=== PATIENT | female | born 1985 ===

== ENCOUNTER 2025-01-23 11:20 | Outpatient (AMB) | payer BC, SELFPAY ==
--- OUTSIDE RECORDS SUMMARY | 2024-04-24 05:15 | XMS_ITS ---
Author Organization [facility] [address] Address [address] [place] [address] Care Team Providers Care Sales Force Administrator Name Role Phone JEAN CLAUDE REN Primary Care Provider [phone] Encounters Encounter Location Date Provider Diagnosis [facility] [address] [facility] [address] [address] 04/24/2024 JEAN CLAUDE REN Plan Of Treatment Next Appt Details Provider Name:MICHELLE DE LEON, 02/23/2025 12:30:00 PM, [address] , [place], [address], Progress Notes * Vega TAIeeDOB:[birth year] (39 yo F)Acc No.[id number]:04/24/2024 Progress Notes Patient: Sophie Hall Provider: Brendan REN PA-C :1985 A ge:38 Y S ex:Female Date:04/24/2024 Address:[address] [facility] [place], [place] * Electronic signature of OTTO REN PA-C on 01/23/2025 at 10:21 PM EST Sign off status: Pending * Provider: Brendan REN PA-C Date: 0 04/24/2024 Generated for [place]/Eveline/eTransmitting on: 1 03/25/2024 10:21 PM EST
--- OUTSIDE RECORDS SUMMARY | 2025-01-01 03:15 | XMS_ITS ---
Author Organization [facility] [address] Address [address] [place] [address] Care Team Providers Care Emergency Room Clerk Name Role Phone JEAN CLAUDE REN Primary Care Provider MICHELLE DE LEON Unavailable [phone] Encounters Encounter Location Date Provider Diagnosis [facility] [address] [address] 01/01/2025 MICHELLE DE LEON Plan Of Treatment Next Appt Details Provider Name:MICHELLE DE LEON, 02/23/2025 12:30:00 PM, [address], [place], [address], Progress Notes * CAMILA, ReneeDOB:[birth year] (39 yo F)Acc No.[id number]:01/01/2025 Patient: Sophie Hall Provider: Ruthie DE LEON NP :1985 A ge:39 Y S ex:Female Date:01/01/2025 Address:[address] [facility] [place] Pcp:JEAN CLAUDE REN * Electronic signature of JOHN DE LEON on 01/23/2025 at 10:19 PM EST Sign off status: Pending * Provider: Ruthie DE LEON NP Date: Generated for Sengi ng/Facloverg/eTransmitting on: 03/25/2024 10:19 PM EST
--- NOTE | 2025-01-23 11:30 | MHC.OFFWIV ---
Intake Vital Signs 01/23/25 11:31 Height 5 ft 3.5 in BP 138/80 Blood Pressure Location Lt brachial Position Sitting Pulse 116 H Pulse Source Pulse Oximeter Pulse Oximetry (%) 100 Oxygen Delivery Method Room Air Intake Visit Reasons: EP Dog bite on right hand Intake Note: Patient presents c/o dog bite on right hand from her own dog yesterday. Dog is UTD with shots. Allergies azithromycin Allergy (Unknown, Verified 01/23/25 11:34) Gastrointestinal Upset HPI HPI Comments History of Present Illness Details History of Present Illness - The patient is a 39-year-old female presenting with a dog bite. - The incident occurred when the patient's dog got off the leash and bit her during an altercation with another dog. - The bite resulted in immediate bruising and swelling, with the patient experiencing numbness and swelling in the arm and hand, particularly affecting the thumb and pinky and radiating up the forearm. - The patient cleaned the wound with warm water, hydrogen peroxide, and Hibiclens, and used a wound wash the following morning. - She has been applying Bacitracin and a bandaid to the area. - The patient has a history of hiatal hernia, which causes increased nausea, and is sensitive to antibiotics. - The patient has Polycystic Ovary Syndrome (PCOS) and thyroid issues, which complicate her weight management efforts. - She denies fever, chills, chest pain, SOB, discharge, bleeding, redness, warmth, or joint pain. Physical Exam General: Cooperative, healthy appearing, comfortable, no acute distress and well developed Orientation: Patient oriented x3 Respiratory: Normal respiratory effort and able to speak in complete sentences. Clear to auscultation bilaterally Cardiovascular: Regular rate and rhythm. Normal S1 and S2 Skin: Bruising and swelling noted on the left hand, with a puncture wound from a dog bite. No discharge or streaking noted. Neuro: Patient oriented x3. Sensation is intact. Extremities: Bruising and swelling noted on the right hand, on the palmar aspect in the thenar muscle with a puncture wound from a dog bite. No erythema noted. Ecchymosis and skin abrasion noted. Mild swelling to the area. FROM of the thumb and digits on the right hand. FROM of the wrist. Negative Finklestein test. Hand air traffic controller center is intact. Patient was informed and verbally consented to the use of an ambient scribe for clinic note documentation during this visit. Review of Systems Const All systems reviewed & are unremarkable except as noted in HPI and below Physical Exam Vital Signs: Last Vital Signs Pulse 116 H 01/23/25 11:31 BP 138/80 01/23/25 11:31 Pulse Ox 100 01/23/25 11:31 Oxygen Delivery Method Room Air 01/23/25 11:31 Assessment & Plan Assessment & Plan (1) Dog bite of right hand: Code(s): S61.451A - Open bite of right hand, initial encounter; W54.0XXA - Bitten by dog, initial encounter Qualifiers: Encounter type: initial encounter Qualified Code(s): S61.451A - Open bite of right hand, initial encounter; W54.0XXA - Bitten by dog, initial encounter Plan Most likely Dog Bite plan - Prescribed doxycycline 100 mg twice daily for five days to cover for Pasteurella infection as prophylaxis. - Pt can't tolerate certain antibiotics and preferred to avoid the first line, Augmentin due to side effects. Also did not want a second agent per UTD to cover for the anaerobes. - Advised to keep the wound clean with saline and avoid sealing it with ointments to allow drainage. - Recommended monitoring for signs of infection such as increased redness, streaking, or pus. - Suggested use of Tylenol or Motrin for pain management and advised to apply ice or heat as needed. - Instructed to monitor for changes in symptoms and seek further evaluation if symptoms persist or worsen. Medications: New doxycycline hyclate 100 mg PO BID 10 tabs 0RF 5 days Coding Level of Care Code Est Pt Level 3 (80199) Diagnoses Dog bite of right hand, initial encounter S61.451A; W54.0XXA Encounter type: initial encounter
[2025-01-23 11:31] VITALS: BP 138/80; PULSE 116; O2SAT 100
--- OUTSIDE RECORDS SUMMARY | 2025-01-23 22:20 | XMS_ITS | Encounter Summary ---
Author Organization [facility] Address [address] [place] [address] Phone Care Team Providers Care Insurance Underwriter Name Role Phone OliverIlda Avila MOTA Unavailable Henna Becerril MD Unavailable Whitney Bear MD Unavailable Whitney Bear MD Primary Care Provider [phone] Tanja Davis DO Primary Care Provider [phone] Whitney Bear MD Unavailable [phone] Whitney Bear MD Unavailable [phone] Unknown, Unknown Primary Care Provider Tanja Moore DO Unavailable Encounter Details Date Type Department Care Team (Late st Contact Info) Description 08/10/2021 Ancillary Orders [facility] [address] [place] [address] Alex Jha MD [address] [place] [address] Infertility associated with anovulation Social History Tobacco Use Types Packs/Day Years Used Date Smoking Tobacco: Never Smokeless Tobacco: Never Alcohol Use Standard Drinks/Week Comments Yes 2 (1 standard drink = 0.6 oz pur e alcohol) Comments No Sex and Gender Information Value Date Recorded Sex Assigned at Not on file Legal Sex Female 9:14 PM EDT Gender Identity Not on file Sexual Orientation Not on file 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 Not on file Not on file documented as of this encounter Plan of Treatment Upcoming Encounters Date Type Department Care Team (Late st Contact Info) Description 05/06/2025 3:00 PM EST Office Visit [facility] Endocrinology [address] [address] Юлия Hardin MD [address] [place] [phone] [email or web address] documented as of this encounter Results * US PELVIS TRANSVAGINAL ONLY (08/10/2021 12:55 PM EDT) Anatomical Region Laterality Modality Pelvis, Uterus/Adnexa Ultrasound Narrative 08/10/2021 3:29 PM EDT EXAM INFORMATION LMP: 07/13/2021 UTERUS Measurements: Length x Width x Height = Volume 6.55 cm x 4.22 cm x 3.12 cm = 45.1 cc Endometrium Thickness: 2.6 mm Fibroids Location: Fibroids Appearance: LEFT OVARY Measurements: Length x Width x Height = Volume 4.26 cm x 4.08 cm x 1.58 cm = 14.36 cc RIGHT OVARY Measurements: Length x Width x Height = Volume 4.78 cm x 2.79 cm x 2.69 cm = 18.76 cc COMMENTS Introductory Information: Endovaginal sonography was performed. There are no prior studies for comparison. Uterus The uterus is retroverted. There is a moderate amount of anechoic fluid in the endometrial cavity. The myometrial echotexture is diffusely heterogeneous, a finding which can be seen with adenomyosis. The following findings are present: Asymmetric thickening and heterogeneity of the posterior myometrium. ?Right Adnexa There is a complex cyst in the right ovary measuring 1.5 x 1.5 x 1.2 cm. The complex cyst is most likely a/an corpus luteal cyst or hemorrhagic ovarian cyst. No internal color Doppler blood flow identified within the cyst. There is a tubular fluid filled structure in the right adnexa, measuring 3.3 x 1.6 x 1 cm. Left adnexa The left ovary appears normal. [place] No fluid is visible. IMPRESSION: Fluid in the endometrial cavity, of uncertain etiology. The fluid does not outline a polyp and shows that the anterior and posterior em of the endometrial lining are both thin. The myometrial echotexture is diffusely heterogeneous, a finding which can be seen with adenomyosis. Probable right hydrosalpinx and probable small left corpus luteum, with no other suspicious adnexal abnormality. Shutdown Planner: Adriana Rae RDMS Procedure Note Gavin Pollard MD - 08/10/2021 EXAM INFORMATION LMP: 07/13/2021 UTERUS Measurements: Length x Width x Height = Volume 6.55 cm x 4.22 cm x 3.12 cm = 45.1 cc Endometrium Thickness: 2.6 mm Fibroids Location: Fibroids Appearance: LEFT OVARY Measurements: Length x Width x Height = Volume 4.26 cm x 4.08 cm x 1.58 cm = 14.36 cc RIGHT OVARY Measurements: Length x Width x Height = Volume 4.78 cm x 2.79 cm x 2.69 cm = 18.76 cc COMMENTS Introductory Information: Endovaginal sonography was performed. There are no prior studies for comparison. Uterus The uterus is retroverted. There is a moderate amount of anechoic fluid in the endometrial cavity. The myometrial echotexture is diffusely heterogeneous, a finding which canbe seen with adenomyosis. The following findings are present: Asymmetric thickening and heterogeneity of the posterior myometrium. ?Right Adnexa There is a complex cyst in the right ovary measuring 1.5 x 1.5 x 1.2 cm. The complex cyst is most likely a/an corpus luteal cyst or hemorrhagicovarian cyst. No internal color Doppler blood flow identified within the cyst. There is a tubular fluid filled structure in the right adnexa, measuring3.3 x 1.6 x 1 cm. Left adnexa The left ovary appears normal. [place] No fluid is visible. IMPRESSION: Fluid in the endometrial cavity, of uncertain etiology. The fluid does not outline a polyp and shows that the anterior and posterior em of the endometrial lining are both thin. The myometrial echotexture is diffusely heterogeneous, a finding which canbe seen with adenomyosis. Probable right hydrosalpinx and probable small left corpus luteum, with no other suspicious adnexal abnormality. 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 documented in this encounter Care Teams Insurance Underwriter Relationship Specialty Start Date End Date Whitney Bear MD [address] [facility] [address] [place] [address] PCP - General 01/10/17 12/01/21 Tanja Davis DO [address] [place] [address] PCP - General Family Medicine 12/02/21 01/08/24 Unknown, Stephany, PCP - General 01/09/24 Ilda Boyd NP [address] [place] [address] [email or web address] Historical LMR Provider 12/25/16 Henna Becerril MD [address] [place] [address], [address] [place] [address] [email or web address] Historical LMR Provider 12/25/16 Whitney Bear MD [address] [place] [address] [email or web address] Historical LMR Provider 12/25/16 Whitney Bear MD [address] [place] [address] 7 [place] [address] [email or web address] Insurance Assigned Provider 03/13/2207/10/22 Whitney Bear MD [address] [place] [address] [address] [place] [address] [email or web address] Insurance Assigned Provider 06/11/2301/28 Tanja Davis DO [address] [place] [address], [address] [place] [address] Insurance Assigned Provider 04/14/24 documented as of this encounter Additional Source Comments The information contained in this document represents components of the legal health record. It is not the complete legal health record.[facility]
--- OUTSIDE RECORDS SUMMARY | 2025-01-23 22:20 | XMS_ITS | Encounter Summary ---
Author Organization [facility] Address [address] [place] [address] Phone Care Team Providers Care Youth Associate Name Role Phone Suzanne Vyas RETAIL PERSONAL BANKER Unavailable [phone] Conchita Tracey MD Unavailable [phone] Ilda Boyd RETAIL PERSONAL BANKER Unavailable Hillary Mcfarlane RETAIL PERSONAL BANKER Unavailable [phone] Hillary Martines LEAD VULCANIZING OPERATOR Unavailable [phone] Henna Becerril MD Unavailable Whitney Bear MD Unavailable [phone] Janett Gonzales DO Unavailable Master Acosta MD Unavailable [phone] Juan De La Vega MD Unavailable Frances [address] RD Unavailable [email or web address] Christine Castillo MD Unavailable Brandan White MD Unavailable [phone] Paulina Chatman MD Unavailable Whitney Bear MD Primary Care Provider [phone] Tanja Davis DO Primary Care Provider [phone] Whitney Bear MD Unavailable Whitney Bear MD Unavailable [phone] Unknown, Unknown Primary Care Provider Tanja Moore DO Unavailable Reason for Visit * Reason Comments Medication Refill Encounter Details Date Type Department Care Team (Late st Contact Info) Description 09/13/2020 Refill [facility] [address] [place] [address] Whitney Bear MD [address] 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 * Francesco Rodriguez MA - 09/15/2020 11:01 AM EDT THYROID MEDICATION REFILL Last office visit: Visit date not found Next office visit: Visit date not found Last TSH: TSH Date Value Ref Range Status 01/12/2017 2.67 0.27 - 4.20 uIU/mL Final Last refill: documented in this encounter Plan of Treatment Upcoming Encounters Date Type Department Care Team (Late st Contact Info) Description 05/06/2025 3:00 PM EST Office Visit [facility] Endocrinology [address] [address] Юлия Hardin MD [address] [facility] [address] [place] [address] [email or web address] documented as of this encounter Visit Diagnoses Diagnosis Hypothyroidism, unspecified type documented in this encounter Care Teams Youth Associate Relationship Specialty Start Date End Date Whitney Bear MD [address] [place] [address] 7 [place] [address] PCP - General 01/10/17 12/01/21 Tanja Davis DO [address] [place] [phone] PCP - General Family Medicine 12/02/21 01/08/24 Unknown, Stephany, PCP - General 01/09/24 Suzanne Vyas NP [address] [place] [address] [email or web address] Historical LMR Provider 12/25/16 03/14/21 Conchita Tracey MD [address] [place] [email or web address] Historical LMR Provider 12/25/16 03/14/21 Ilda Boyd NP [address] [place] [address] [email or web address] Historical LMR Provider 12/25/16 Hillary Mcfarlane NP [address] [place] [address] Historical LMR Provider 12/25/16 2 Hillary Martines FNP [address] [place] [address] Historical LMR Provider 12/25/16 03/14/21 Henna Becerril MD [address] [place] [address], [address] [place] [address] Historical LMR Provider 12/25/16 Whitney Bear MD [address] [place] [address] Historical LMR Provider 12/25/16 Janett Gonzales DO [address] [place] [address] Historical LMR Provider 12/25/16 2 Master Acosta MD [address] [address] Historical LMR Provider 12/25/16 03/14/21 Juan De La Vega MD [address] [place] [phone] Historical LMR Provider 12/25/16 2 [address], RD Historical LMR Provider 12/25/16 03/14/21 Christine Castillo MD [address] [place] [address] Historical LMR Provider 12/25/16 2 Brandan White MD [address] [place] [address] Historical LMR Provider 12/25/16 2 Paulina Chatman MD [address] [address] [email or web address] Historical LMR Provider 12/25/16 03/14/21 Whitney Bear MD [address] [place] [address] 7 [place] [address] Insurance Assigned Provider 03/13/22 07/10/22 Whitney Bear MD [address] [place] [address] 7 [place] [address] Insurance Assigned Provider 06/11/23 07/16/23 Tanja Davis DO [address] [place] [address] 7 [place] [address] Insurance Assigned Provider 04/14/24 05/12/24 documented as of this encounter Additional Source Comments The information contained in this document represents components of the legal health record. It is not the complete legal health record.[facility]
--- OUTSIDE RECORDS SUMMARY | 2025-01-23 22:21 | XMS_ITS | Encounter Summary ---
Author Organization [facility] Address [address] [place] [address] Phone Care Team Providers Care Insole Taper Name Role Phone OliverIlda Javi MOTA Unavailable Henna Becerril MD Unavailable Whitney Bear MD Unavailable [phone] Tanja Davis DO Primary Care Provider Whitney Bear MD Unavailable Whitney Bear MD Unavailable Unknown, Unknown Primary Care Provider Tanja Moore DO Unavailable Encounter Details Date Type Department Care Team (Latest Contact Info) Description 02/05/2022 Transcribe Orders Virtual Department [address] [place] [address] Tanja Davis, DO [address] [facility], [address] [place] [address] [email or web address] Breast screening (Primary Dx) Social History Tobacco Use Types Packs/Day Years Used Date Smoking Tobacco: Never Smokeless Tobacco: Never Alcohol Use Standard Drinks/Week Comments Yes 2 (1 standard drink = 0.6 oz pur e alcohol) Child or Family Care Answer Date Record ed Do you have problems with on e of the following making it difficult for you to work, study, or receive health care? No 12/01/2021 Education Answer Date Recorded Are you interested in help w ith more adult education (for example, completing high school, GED, job training, learning the [place]ij[place] language, technical skills, or developing parenting skills)? No 12/01/2021 Food Answer Date Recorded Within the past 6 months we worried whether our food would run out before we got money to buy more. Never True 12/01/2021 Within the past 6 months the food we bought just didn't last and we didn't have enough money to get more. Never True Residential Stability Answer Date Recor ded What is your housing situation today? I have pernell sing 12/01/2021 How many times have you move d in the past 12 months? Zero (I did not move) 12/01/2021 Paying for Meds Answer Date Recorded Do you have trouble paying for medicines? I maria se not to answer 12/01/2021 Paying Utility Bills Answer Date Record ed Do you have trouble paying your heating or elect ricity bill? No 12/01/2021 Transportation Answer Date Recorded Has the lack of transportati on kept you from medical appointments or from getting medications? No 12/01/2021 Unemployment Answer Date Recorded Are you currently unemployed or working on a part-time or temporary basis, and looking for work? 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 Not on file Not on file documented as of this encounter Plan of Treatment Upcoming Encounters Date Type Department Care Team (Late st Contact Info) Description 05/06/2025 3:00 PM EST Office Visit [facility] Endocrinology [address] [place] [address] Юлия Hardin MD [address] [place] [address] [email or web address] documented as of this encounter Results * (ABNORMAL) BI MAMMOGRAM SCREENING WITH TOMOSYNTHESIS WITH CAD (BILATERAL) (07/27/2022 2:18 PM EDT) Anatomical Region Laterality Modality Breast Left, Breast Right, Breast Bilateral Bila teral Mammography 07/29/2022 9:44 AM EDT Impressions 07/29/2022 9:49 AM EDT 1. New masslike asymmetry in the central left breast. The patient is being recalled for additional imaging to determine appropriate follow-up. 2. No other suspicious changes in either breast. BI-RADS CATEGORY: 0 - Incomplete. Need additional imaging evaluation. DENSITY: There are scattered fibroglandular densities. LEFT RECOMMENDATION DUE DATE: At This Time Left Additional Imaging RIGHT RECOMMENDATION DUE DATE: 12 Months Right Mammography Screening Narrative 07/29/2022 9:49 AM EDT AVAILABLE COMPARISON: 06/21/2017. Bilateral 3-D tomosynthesis with 2-D reconstructions in the CC and MLO projection. Computer-aided detection system also utilized. There is a new oval asymmetric density measuring about 9 x 9 x 12 mm in the medial aspect of the central left breast at about 3:00, roughly 3 cm deep to the nipple. The patient is being recalled for additional imaging to determine appropriate follow-up No other new mass, asymmetry, architectural distortion or suspicious calcifications have become apparent in either breast. Procedure Note Jovanny Stein MD - 07/29/2022 AVAILABLE COMPARISON: 06/21/2017. Bilateral 3-D tomosynthesis with 2-D reconstructions in the CC and MLOprojection. Computer-aided detection system also utilized. There is a new oval asymmetric density measuring about 9 x 9 x 12 mm inthe medial aspect of the central left breast at about 3:00, roughly 3 cmdeep to the nipple. The patient is being recalled for additional imaging to determineappropriate follow-up No other new mass, asymmetry, architectural distortion or suspiciouscalcifications have become apparent in either breast. IMPRESSION: 1. New masslike asymmetry in the central left breast. The patient is beingrecalled for additional imaging to determine appropriate follow-up. 2. No other suspicious changes in either breast. BI-RADS CATEGORY: 0 - Incomplete. Need additional imaging evaluation. DENSITY: There are scattered fibroglandular densities. LEFT RECOMMENDATION DUE DATE: At This Time Left Additional Imaging RIGHT RECOMMENDATION DUE DATE: 12 Months Right Mammography Screening Tanja Davis DO IMG MG EXAMS Final Result documented in this encounter Visit Diagnoses Diagnosis Breast screening- Primary Breast screening, unspecified Breast screening Breast screening, unspecified documented in this encounter Additional Health Concerns Assessment Noted Time PHQ-2 Depression Total Score: 1 12/02/19 22 6:00 PM EDT documented as of this encounter Care Teams Insole Taper Relationship Specialty Start Date End Date Tanja Davis DO [address] [place] [address], [facility] [address] [place] [address] PCP - General Family Medicine 12/02/21 01/08/24 Unknown, Unknown, PCP - General 01/09/24 Ilda Boyd NP [address] [place] [address] [email or web address] Historical LMR Provider 12/25/16 Henna Becerril MD [address] [facility], [address] [place] [address] Historical LMR Provider 12/25/16 Whitney Bear MD [address] [place] [address] 7 [place] [address] Historical LMR Provider 12/25/16 Whitney Bear MD [address] [place] [address] 7 [place] [address] Insurance Assigned Provider 03/13/2207/10/22 Whitney Bear MD [address] [place] [address], [address] [place] [id number] [email or web address] Insurance Assigned Provider 06/11/2301/28 Tanja Davis DO [address] [place] [address], [facility] [address] [place] [id number] [email or web address] Insurance Assigned Provider 04/14/24 documented as of this encounter Additional Source Comments The information contained in this document represents components of the legal health record. It is not the complete legal health record.[facility]
--- OUTSIDE RECORDS SUMMARY | 2025-01-23 22:22 | XMS_ITS | Clinical Summary ---
Author Organization [facility] Address [address] [place] [address] Phone Care Team Providers Care Entry Level Mechanical Engineer Name Role Phone OliverIlda Javi FISHING REEL ASSEMBLER Unavailable Henna Becerril MD Unavailable Whitney Bear MD Unavailable [phone] Unknown, Unknown Primary Care Provider Shantell franco Allergies Active Allergy Reactions Criticality Noted Date Comments Azithromycin GI Upset 10/02/2018 Bee Venom Protein (Honey Bee) Anaphylaxis High 01/12/2017 Other reaction(s): anaphylaxisis Morphine (Pf) Itching 08/10/2021 Iodine 11/26/2021 Other reaction(s): seafood allergies Peanut GI Upset 11/26/2021 Scallops Shortness Of Breath High 01/12/2017 Shellfish Containing Products Shortness Of Breath High 01/12/2017 Tree Nuts GI Upset 01/12/2017 Medications promethazine (PHENERGAN) 12.5 MG tabletIndicatio ns:Gastroesopha geal reflux disease without esophagitis Take 1 tablet (12.5 mg total) by mouth every 6 (six) hours as needed for nausea. 7 tablet 01/12/20 22 Active ondansetron (ZOFRAN) 4 MG tabletIndicatio ns:Nausea Take 1 tablet (4 mg total) by mouth every 8 (eight) hours as needed for nausea. 48 tablet 10/26/19 23 Active EPINEPHrine (EPIPEN) 0.3 mg/0.3 mL auto-injectorIn dications:Aller gy to insects as directed- bee stiing 1 each 2 07/20/19 24 Active adapalene (DIFFERIN) 0.3 % gel Apply topically nightly at bedtime. 45 g 3 07/20/19 24 Active norethindrone-e thinyl estradiol-iron (MICROGESTIN FE 1.08/03, 28,) 1.5-0.03 mg tablet TAKE 1 TABLET BY MOUTH EVERY DAY SKIP PLACEBOS AND START THE NEXT PACK 84 tablet 08/22/19 24 Active blood-glucose sensor (FREESTYLE LAUREN 3 SENSOR) Jackeline Use as directed to monitor glucose, change q14 days 2 each 5 09/20/19 24 Active hydrOXYzine (ATARAX) 10 mg/5 mL syrup Take 1-5 mg po 1-2x per day prn anxiety 118 mL 1 01/04/20 24 Active LORazepam (ATIVAN) 0.5 MG tabletIndicatio ns:Generalized anxiety disorder Take 1 po qd prn 28 tablet 01/04/20 24 Active levothyroxine (SYNTHROID,LEVO THROID) 25 MCG tabletIndicatio ns:Hypothyroidi sm, unspecified type TAKE 1 TABLET BY MOUTH EVERY DAY IN THE MORNING 90 tablet 1 01/16/20 25 Active levothyroxine (SYNTHROID,LEVO THROID) 25 MCG tabletIndicatio ns:Hypothyroidi sm, unspecified type take 1 tablet by mouth every day in the morning 90 tablet 2 02/21/20 24 025 Discontinued Active Problems Problem Noted Date Diagnosed Date Atypical lobular hyperplasia (ALH) of left breas t 01/04/2024 Overview (01/04/2024): 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 Assessment & Plan (01/04/2024 4:37 PM EDT): Reviewed to go to ed if the pain is extreme and or is accompanied by fever. Adenomyosis 12/02/2021 Overview (01/04/2024): [facility] [employer] R[employer] SERVICES MANAGER Gastroesophageal reflux disease without esophagi tis 12/02/2021 Overview (01/04/2024): Lifestyle controlled. Assessment & Plan (01/04/2024 4:39 PM EDT): No acute issue. Assessment & Plan (01/11/2022 4:13 PM EST): She uses tums as needed Avoiding PPI as she is trying to conceive Refilled phenergan to use as needed. We discussed famotidine. Generalized anxiety disorder 12/02/2021 Overview (01/04/2024): Lorazepam- prn - rare use Possibly related to PTSD surrounding traumatic fertility issues Diazepam has also worked well for her Hiatal hernia 10/25/2017 Overview (01/04/2024): Upper endoscopy by Dr Méndez in 2018. Lifestyle controlled She is adverse to PPI/H2 Will take TUMS Assessment & Plan (01/04/2024 4:39 PM EDT): No acute issue Acne 06/12/2017 Assessment & Plan (06/12/2017 8:24 PM EDT): Encouraged continued f/u with derm for acne management. Offered different OCP to address acne, Sophie declined as she is worried about trying a different pill. Polycystic ovarian syndrome 06/12/2017 Overview (01/04/2024): CAR[employer] R[employer] SERVICES MANAGER: babak- [facility] [employer] RAMP SERVICES MANAGER Assessment & Plan (01/04/2024 4:35 PM EDT): No acute issue. Assessment & Plan (08/09/2023 1:07 PM EDT): On OCP w/o current c/o hair loss/excess hair growth or acne (on adapalene). Assessment & Plan (06/12/2017 8:32 PM EDT): Advised that amenorrhea on OCPs is common and not concerning. Sophie declined trial of alternative pill (suggested Kate) to specifically address acne concerns. History of 3 sections 06/12/2017 Assessment & Plan (06/12/2017 8:15 PM EDT): Reviewed with Sophie associated risks in subsequent pregnancies including abnormal placentation (i.e. Acreta/percreat/increta; previa) in addition to uterine rupture. In particular, after 3 c-sections, risk of placentation abnormalities is increased 40%. While operative notes from her prior are not available for review, her description of a uterine window at time of delivery in G4 also puts her at risk for uterine rupture. We discussed the catastrophic nature of these issues with morbidity/mortality concerns for both mother and fetus. We discussed potential for delivery, c-hyst, and hemorrhage. Sophie is considering requesting transfer of one of her 4 remaining embryos despite this information as she feels conflicted about destroying the remaining embryos. We discussed the need for close monitoring should she pursue this option and would recommend delivery at [facility] again to optimize available resources. History of female sterilization 06/12/2017 Assessment & Plan (06/12/2017 8:17 PM EDT): Advised Sophie that the changes she has noticed are not the result of her sterilization procedure. Operative note not available today so unable to review which approach was used however, no evidence to support hormonal changes following permanent sterilization. 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 Continue intervention as per specialty care. Assessment & Plan (08/09/2023 1:06 PM EDT): Reports good consistency taking rx. Will check levels & adjust as appropriate. Resolved Problems Problem Noted Date Diagnosed Date Resolved Date Polycystic ovarian syndrome 08/09/2023 08/09/2023 Weight gain 08/09/2023 01/04/2024 Assessment & Plan (08/09/2023 1:09 PM EDT): Has gained weight w/ difficulty losing. Will check TFTs/optimize rx as appropriate. Will screen for Cushings (low clinical suspicion) with late night salivary cortisol x 2 given on OCP & estrogen can increase cortisol/impact dex suppression testing. If these tests are normal, would continue to work on eating healthy, get back to activity, include some strength training. Could consider seeing dietitian vs a weight management program as needed. Right upper quadrant abdominal pain 05/30/2019 12/02/2021 Assessment & Plan (05/30/2019 12:01 PM EDT): I spent a total of 15 minutes during this real-time, interactive virtual clinical encounter, which was conducted virtually using TELEPHONE ONLY technology. Greater than 50% of the time spent was devoted to counseling and coordinating care including review of records, pertinent lab data and studies, as well as discussing diagnostic evaluation and work up, planned therapeutic interventions and future disposition of care. This includes any additional research needed to obtain further information in formulating the plan of care of this patient. This includes counseling the patient about her disease and diagnosis, specifically: Sophie has been experiencing right upper quadrant abdominal pain since 9 AM this morning and getting worse. She has not vomited however the pain is intense. She notes that she is aware of gallbladder stones and declined the surgery in the past and is still on the fence if she wants to get this removed if this is the problem. I advised her to go the emergency room for blood work as well as an ultrasound for verification of the stones as well as fluid hydration and pain medication as needed. She will make her mind up as to what she wants to do. If this gets worse she will call and I will still advise her to go to emergency room. She understands and agrees. Sciatica of right side 01/03/201801/03 Assessment & Plan (02/20/2018 1:12 PM EST): She will follow up with MRI and physical therapy as scheduled. We will notify with results. Calculus of gallbladder with acute on chronic cholecystitis without obstruction 06/12/20172023 Loss of hair 06/12/2017 12/02/2021 Assessment & Plan (06/12/2017 8:21 PM EDT): Reviewed broad differential for hair loss, discussed physiologic hair loss following and reviewed that this can take time to regrow. On my exam, Sophie does not have bald patches or distinct baldness. The hairline on the left aspect of her forehead appears slightly diminished. Advised that checking broad hormone panel will not likely yield any useful clinical information particularly with normal eval by Dr. White. She is planning on seeing a chair car attendant at [facility] in July and will keep this appointment. Discharge from right nipple 06/10/2017 12/02/2021 Assessment & Plan (06/12/2017 8:18 PM EDT): Based on history, nipple discharge seems consistent with blocked milk duct however, she is not currently . Offered ultrasound evaluation and advised Sophie to avoid squeezing or stimulating her nipples. Migraine 02/06/2021 Encounters Date Type Department Care Team Description 01/11/2025 Refill [facility] Endocrinology [address] [place] [phone] Юлия Hardin MD Medication Refill from Last 3 Months Immunizations Immunization Administration Dates Next Due COVID-19 (Pre-12/27) Sarah Vaccine, [id number], PF 06/11/2020 DTP 01/20/1990, 7,05/30/1985,1985,01/05/1985 Hepatitis B 03/06/2008,05/17/1997 Hib, unspecified formulation 01/02/1987 MMR 05/17/1997,04/11/1986 PPD Test 11/09/2017 Polio - OPV 01/20/1990, 7,05/30/1985,1985,01/05/1985 Td (adult),2 Lf Tetanus Toxo id, PF, Adsorbed 12/02/2021 Td, unspecified formulation 11/04/1998 Tdap 10/07/2011 Varicella 10/13/2005,09/08/2005,08/18/1991 Family History Medical History Relation Comments Hypertension Father Breast cancer Maternal Aunt Stroke Maternal Grandfather CV disease Maternal Grandmother Hypertension Maternal Grandmother Stroke Maternal Grandmother Thyroid disease Maternal Grandmother s/p BENSON Gallbladder disease Mother Diverticulitis Paternal Grandfather Stroke Paternal Grandfather Relation Status Comments Brother Alive Father Alive Maternal Aunt Maternal Grandfather Maternal Grandmother Alive Mother Alive Paternal Grandfather Social History Tobacco Use Types Packs/Day Years Used Date Smoking Tobacco: Never Smokeless Tobacco: Never Tobacco Cessation:Counseling Given: Not Answered Alcohol Use Standard Drinks/Week Comments Yes 3 (1 standard drink = 0.6 oz pur e alcohol) Child or Family Care Answer Date Record ed Do you have problems with on e of the following making it difficult for you to work, study, or receive health care? No 12/01/2021 Education Answer Date Recorded Are you interested in more education? Not on humberto e 12/17/2023 Are you concerned about learning? Not on file 12/17/2023 No 12/17/2023 No 12/17/2023 Food Answer Date Recorded Within the past [...] basis, and looking for work? No 12/01/2021 Digital Access Answer Date Recorded No 07/28/2022 No 07/28/2022 Reliable internet access at home? Not on file 07/28/2022 Device with a working camera? 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 Not on file Not on file Not on file Last Filed Vital Signs Vital Sign Reading Time Taken Comments Blood Pressure 104/72 08/08/2023 11:20 AM EDT Pulse 80 08/08/2023 11:20 AM EDT Temperature 36.6 C (97.9 F) 08/08/2023 11:20 AM EDT Respiratory Rate 16 08/08/2023 11:20 AM EDT Oxygen Saturation 99% 08/08/2023 11:20 AM EDT Inhaled Oxygen Concentration - - Weight 72.3 kg (159 lb 6.4 oz) 08/08/2023 11:20 AM EDT Height 160 cm (5' 2.99 ) 08/08/2023 11:20 AM EDT Body Mass Index 28.24 08/08/2023 11:20 AM EDT Plan of Treatment Upcoming Encounters Date Type Department Care Team (Late st Contact Info) Description 05/06/2025 3:00 PM EST Office Visit [facility] Endocrinology [address] [phone] Юлия Hardin MD [address] [place] [phone] Health Maintenance Due Date Last Done Comments DEPRESSION SCREENING 12/01/2022 12/01/2021 INFLUENZA VACCINE (#1) 2024 COVID-19 VACCINE ( season) 2024 06/11/2020 MAMMOGRAM 2024 08/18/2022, 05/2 05/2022, 06/21/2017 TSH LEVEL 11/18/2024 11/19/2023, 06/0 06/2023, 12/28/2022, Additional history exists SCREENING FOR DIABETES 12/02/2024 12/02/2021 PAP SMEAR 02/23/2026 02/23/2023, 01/05, 01/12/2017, Additional history exists Adult Td,Tdap Booster 12/03/2031 12/02/2021 , 10/07/2011, 11/04/1998 HIB VACCINES Completed 01/02/1987 HEPATITIS C SCREENING Completed 12/06/2014 HIV ONE-TIME SCREENING (18-65 YEARS) Completed 12/06/2014 SMOKING STATUS SCREENING (Once After 26 Yrs) Completed 01/04/2024 HEPATITIS A VACCINES Aged Out No long er eligible based on patient's age to complete this topic MENINGOCOCCAL VACCINES (ACWY) Aged Out No longer eligible based on patient's age to complete this topic MENINGOCOCCAL VACCINES (B) Aged Out N o longer eligible based on patient's age to complete this topic PNEUMOCOCCAL VACCINES (0-49 years) Aged Out No longer eligible based on patient's age to complete this topic Medical Devices Not on file Procedures Procedure Name Priority Date/Time Associated Diagnosis Comments TSH WITH REFLEX Routine 11/19/2023 5:05 PM EDT 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 PAP TEST Routine 02/23/2023 11:23 AM EST HM MAMMOGRAPHY Routine 08/18/2022 OUTSIDE HIV Routine 12/06/2014 OUTSIDE HEPATITIS C VIRUS SCREENING Routine 12/06/2014 from Last 3 Months or Most Recently Relevant to Health Maintenance Results * TSH with reflex (11/19/2023 5:05 PM EDT) Blood us Юлия Hardin MD LAB BLOOD BKR ORDERABL ES Final Result [address] [address] * Pap Test (02/23/2023 11:23 AM EST) Historical Provider CYTOLOGY ORDERABLES Final Result * HM MAMMOGRAPHY FOR RESULT ENTRY ONLY (08/18/2022) Tanja Davis DO HEALTH MAINTENANCE Final Resu lt * Outside Hepatitis C Virus Screening (12/06/2014) Hepatitis C Screening - External Neg Historical Provider LAB BLOOD ORDERABLES Elsy l Result * OUTSIDE HIV TEST (12/06/2014) HIV - External Neg Result [facility] Historical Provider LAB BLOOD ORDERABLES Elsy l Result from Last 3 Months or Most Recently Relevant to Health Maintenance Insurance [facility] PPO [facility] PPO [employer] [place] OUT OF STATE PPO [place] [place] OUT OF STATE PPO BL[employer] [place] OUT OF STATE PPO [place] [place] OUT OF STATE [place] [address] [address] [facility] [employer] [place] OUT OF [facility] PPO [employer] D[employer] Care Teams Entry Level Mechanical Engineer Relationship Specialty Start Date End Date Unknown, Unknown, PCP - General 01/09/24 Ilda Boyd NP [address] [place] [id number] [email or web address] Historical LMR Provider 12/25/16 Henna Becerril MD [address] [place] [address] Historical LMR Provider 12/25/16 Whitney Bear MD [address] [place] [address] 7 [place] [address] Historical LMR Provider 12/25/16 Additional Source Comments The information contained in this document represents components of the legal health record. It is not the complete legal health record.[facility]
--- OUTSIDE RECORDS SUMMARY | 2025-01-23 22:22 | XMS_ITS | Patient Health Record ---
Author Organization [facility] [address] Address [address] [place] [address] Care Team Providers Care Senior Electrical Design Engineer Name Role Phone MIKAL JEAN CLAUDE Primary Care Provider MICHELLE DE LEON Unavailable [phone] Allergies Allergen (clinical drug ingredient) Drug/Non Drug Allergy documented on EMR Reaction Allergy Type Onset Date Status morphine Duramorph Unknown Drug Allergy Active azithromycin Azithromycin stomach upset Drug Allergy Active Results Component Value Reference Range Flag Notes Hemoglobin [id number] Reviewed date:11/17/2024 08:50:26 AM Interpretation: Performing Lab:[facility] [place], [address] [place] [address], Phone - [phone], Director - Chapisdrrenee Notes/Report: Hemoglobin A1c 5.2 4.8-5.6 % . Prediabetes: 5.7 - 6.4 Diabetes: >6.4 Glycemic control for adults with diabetes: <7.0 Thyroxine (T4) Free, Direct- [id number] Reviewed date:11/17/2024 08:50:26 AM Interpretation: Performing Lab:[facility] [place], [address] [place] [address], Phone - [phone], Director - Chapisdrrenee Notes/Report: T4,Free(Direct) 1.40 0.82-1.77 ng/dL Urinalysis, Complete-[id number] Reviewed date:11/17/2024 08:50:26 AM Interpretation: Performing Lab:[facility] [place], [address] [place] [address], Phone - [phone], Director - MDJodry Notes/Report: Specific [place] 1.020 1.005-1.030 pH 6.0 5.0-7.5 Urine-Color Yellow Yellow Appearance Clear Clear WBC Esterase Negative Negative Protein Negative Negative/Trace Glucose Negative Negative Ketones Negative Negative Occult Blood Trace Negative A Bilirubin Negative Negative Urobilinogen,Semi-Qn 0.2 0.2-1.0 mg/dL Nitrite, Urine Negative Negative Microscopic Examination See below: M icroscopic was indicated and was performed. WBC None seen 0 - 5 /hpf RBC None seen 0 - 2 /hpf Epithelial Cells (non renal) None seen 0 - 10 /hpf Casts None seen None seen /lpf Mucus Threads Present Not Estab. Bacteria None seen None seen/Few [id number] Reviewed date:11/17/2024 08:50:26 AM Interpretation: Performing Lab:[facility] [place], [address] [place] [address], Phone - [phone], Director [facility] Notes/Report: TSH 1.750 0.450-4.500 uIU/mL Vitamin D, [id number] Reviewed date:11/17/2024 08:50:26 AM Interpretation: Performing Lab:[facility] [place], [address] [place] [address], [place], Phone - [phone], Director - MDDuyendry Notes/Report: Vitamin D, 25-Hydroxy 40.9 30.0-100.0 ng/mL Vitamin D deficiency has been defined by the [place] [employer] and an Endocrine Society practice guideline as a level of serum 25-OH vitamin D less than 20 ng/mL (1,2). The Endocrine Society went on to further define vitamin D insufficiency as a level between 21 and 29 ng/mL (2). 1. IOM ([place] [employer]). 2010. Dietary reference intakes for calcium and D. [place]: The National Academies Press. 2. Cleopatra MF, Amina NC, Jing BENITES, et al. Evaluation, treatment, and prevention of vitamin D deficiency: an Endocrine Society clinical practice guideline. JCEM. 2010; 96(7):1911-30. Sonali Isabel CMP14 Default A hand-written panel/profile was received from your office. In accordance with the [facility] Ambiguous Test Code Policy dated September 2002, we have completed your order by using the closest currently or formerly recognized AMA panel. We have assigned Comprehensive Metabolic Panel (14), Test Code #911207 to this request. If this is not the testing you wished to receive on this specimen, please contact the [facility] Client Inquiry/Technical Services Department to clarify the test order. We appreciate your business. Lipid Panel-[id number] Reviewed date:11/17/2024 08:50:26 AM Interpretation: Performing Lab:[facility] [place], [address] [facility], [place], Phone - [phone], Director - Jared Notes/Report: Cholesterol, Total 201 100-199 mg/dL H Triglycerides 220 0-149 mg/dL H HDL Cholesterol 49 >39 mg/dL VLDL Cholesterol Wiliam 38 5-40 mg/dL LDL Chol Calc ([facility]) 114 0-99 mg/dL H Comp. Metabolic Panel (14)-3 Reviewed date:11/17/2024 08:50:26 AM Interpretation: Performing Lab:[facility] [place], [address] [facility], [place], Phone - [phone], Director - Jared Notes/Report: Glucose 86 70-99 mg/dL BUN 13 6-24 mg/dL Creatinine 0.78 0.57-1.00 mg/dL eGFR 98 >59 mL/min/1.73 BUN/Creatinine Ratio 17 9-23 Sodium 137 134-144 mmol/L Potassium 4.2 3.5-5.2 mmol/L Chloride 103 96-106 mmol/L Carbon Dioxide, Total 20 20-29 mmol/L Calcium 9.6 8.7-10.2 mg/dL Protein, Total 7.4 6.0-8.5 g/dL Albumin 4.4 3.9-4.9 g/dL Globulin, Total 3.0 1.5-4.5 g/dL Bilirubin, Total 0.3 0.0-1.2 mg/dL Alkaline Phosphatase 70 44-121 IU/L Effective November 19, 2024 Alkaline Phosphatase reference interval will be changing to: Age Male Female 0 - 5 days 47 - 127 47 - 127 6 - 10 days 29 - 242 29 - 242 11 - 20 days 109 - 357 109 - 357 21 - 30 days 94 - 494 94 - 494 1 - 2 months 149 - 539 149 - 539 3 - 6 months 131 - 452 131 - 452 7 - 11 months 117 - 401 117 - 401 12 months - 6 years 158 - 369 158 - 369 7 - 12 years 150 - 409 150 - 409 13 years 156 - 435 78 - 227 14 years 114 - 375 64 - 161 15 years 88 - 279 56 - 134 16 years 74 - 207 51 - 121 17 years 63 - 161 47 - 113 18 - 20 years 51 - 125 42 - 106 21 - 50 years 47 - 123 41 - 116 51 - 80 years 49 - 135 51 - 125 >80 years 48 - 129 48 - 129 AST (SGOT) 20 0-40 IU/L ALT (SGPT) 18 0-32 IU/L CBC/Diff Ambiguous Default Reviewed date:11/17/2024 08:50:26 AM Interpretation: Performing Lab:[facility] [place], [address], [place], Phone - [phone], Director - Jared Notes/Report: WBC 8.5 3.4-10.8 x10E3/uL RBC 4.71 3.77-5.28 x10E6/uL Hemoglobin 13.8 11.1-15.9 g/dL Hematocrit 41.9 34.0-46.6 % MCV 89 79-97 fL MCH 29.3 26.6-33.0 pg MCHC 32.9 31.5-35.7 g/dL RDW 12.2 11.7-15.4 % Platelets 304 150-450 x10E3/uL Neutrophils 63 Not Estab. % Lymphs 29 Not Estab. % Monocytes 6 Not Estab. % Eos 2 Not Estab. % Basos 0 Not Estab. % Neutrophils (Absolute) 5.3 1.4-7.0 x10E3/uL Lymphs (Absolute) 2.5 0.7-3.1 x10E3/uL Monocytes(Absolute) 0.5 0.1-0.9 x10E3/uL Eos (Absolute) 0.2 0.0-0.4 x10E3/uL Baso (Absolute) 0.0 0.0-0.2 x10E3/uL Immature Granulocytes 0 Not Estab. % Immature Grans (Abs) 0.0 0.0-0.1 x10E3/uL Hematology Comments: A hand-written panel/profile was received from your office. In accordance with the [facility] Ambiguous Test Code Policy dated September 2002, we have assigned CBC with Differential/Platelet, Test Code #[id number] to this request. If this is not the testing you wished to receive on this specimen, please contact the [facility] Client Inquiry/ Technical Services Department to clarify the test order. We appreciate your business. Ambig Abbrev LP Default Reviewed date:11/17/2024 08:50:26 AM Interpretation: Performing Lab:[facility] [place], [address], [place], Phone - [phone], Director - Jared Notes/Report: Sonali Nicholskellenayaan LOLA Default A hand-written panel/profile was received from your office. In accordance with the [facility] Ambiguous Test Code Policy dated September 2002, we have completed your order by using the closest currently or formerly recognized AMA panel. We have assigned Lipid Panel, Test Code #[id number] to this request. If this is not the testing you wished to receive on this specimen, please contact the [facility] Client Inquiry/Technical Services Department to clarify the test order. We appreciate your business. Reason For Referral No Information Medications Medication SIG (Take, Route, Frequency, Duration) Notes Start Date End Date Status Microgestin FE .08/03 1.5-30 MG-MCG Tablet TAKE 1 TABLET BY MOUTH EVERY DAY SKIP PLACEBOS AND START THE NEXT PACK Oral; Duration: 84 Days Active Phentermine HCl 30 MG Capsule 1 capsule Orally Once a day; Duration: 30 days 01/18/2025 Active Zepbound 2.5 MG/0.5ML Solution Auto-injector 2.5 mg weekly Subcutaneous Weekly; Duration: 30 days 01/18/2025 Active LORazepam 0.5 MG Tablet 1 tablet at bedt samuel as needed Orally Once a day NEEDED Not-Taking Levothyroxine Sodium 25 MCG Tablet 1 tablet in the morning on an empty stomach Orally Once a day Active Ondansetron 4 MG Tablet Disintegrating 1 tablet on the tongue and allow to dissolve prn nausea/vomiting Orally twice day; Duration: 30 days 01/15/2025 Active Phentermine HCl 15 MG Capsule 1 capsule Orally Once a day; Duration: 30 days 12/26/2024 Not-Taking Social History Section Notes: Smoking: No Alcohol use: Yes Smoking: No Alcohol use: Yes Smoking: No Alcohol use: Yes Smoking: No Alcohol use: Yes Smoking: No Alcohol use: Yes Smoking: No Alcohol use: Yes Smoking: No Alcohol use: Yes Smoking: No Alcohol use: Yes Problems Problem Type SNOMED Code ICD Code Onset Dates Problem Status W/U Status Risk Notes Problem Acquired hypothyroidism (943443552) Acquired hypothyroidism (E03.9) Active confirmed Problem Attention deficit hyperactivity disorder (665633242) Attention deficit hyperactivity disorder (ADHD), predominantly hyperactive type (F90.1) Active confirmed Problem Gastroesophageal reflux disease (970111741) Gastroesophageal reflux disease, unspecified whether esophagitis present (K21.9) Active confirmed Problem Hiatal hernia (23274056) Hiatal hernia (K44.9) Active confirmed Problem Overweight (640083940) Overweight (BMI 25.0-29.9) (E66.3) Active confirmed Problem Avitaminosis D (91427274) Avitaminosis D (E55.9) Active confirmed Problem Gallstones (280168256) Gallstones (K80.20) Active confirmed Problem Attention deficit hyperactivity disorder (403592607) Adult ADHD (F90.9) Active confirmed Problem Generalized anxiety disorder (52019641) Anxiety, generalized (F41.1) Active confirmed Problem Benign mammary dysplasia (09289625) Breast atypical lobular hyperplasia (N60.99) Active confirmed Problem Carcinoma in situ of breast (566975234) 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) Active confirmed Problem Reactive hypoglycemia (202491) Reactive hypoglycemia (E16.1) Active confirmed Problem Benign mammary dysplasia (83983348) Breast atypical hyperplasia (N60.99) Active confirmed Vital Signs Heart Rate 98 /min 01/15/2025 Oximetry 99 % 01/15/2025 Blood pressure diastolic 80 mm Hg 01/15/2025 Height 63 in 01/15/2025 Blood pressure systolic 126 mm Hg 01/15/2025 Weight 168 lbs 01/15/2025 BMI 29.76 kg/m2 01/15/2025 Encounters Encounter Location Date Provider [facility] [address] [place] [address] 02/23/2024 JEAN CLAUDE [place] Obesity (BMI 30-39.9 ) E66.9 ; BMI 30.0-30.9,adult Z68.30 ; Acquired hypothyroidism E03.9 ; Anxiety, generalized F41.1 ; Screening for heart disease Z13.6 ; Lobular carcinoma in situ (LCIS) of left breast D05.02 ; Breast atypical lobular hyperplasia N60.99 ; Reactive hypoglycemia E16.1 ; Hiatal hernia K44.9 ; Gastroesophageal reflux disease, unspecified whether esophagitis present K21.9 ; Gallstones K80.20 and Nutritional counseling Z71.3 [facility] [address] [address] 04/02/2024 JEAN CLAUDE REN Overweight (BMI 25.0-29.9) E66.3 ; BMI 29.0-29.9,adult Z68.29 ; Acquired hypothyroidism E03.9 ; Reactive hypoglycemia E16.1 and Nutritional counseling Z71.3 [facility] [address] 05/03/2024 JEAN CLAUDE REN Overweight (BMI 25.0-29.9) E66.3 ; BMI 29.0-29.9,adult Z68.29 ; Acquired hypothyroidism E03.9 ; Reactive hypoglycemia E16.1 and Nutritional counseling Z71.3 [facility] [address] 06/05/2024 JEAN CLAUDE REN Overweight (BMI 25.0-29.9) E66.3 ; BMI 29.0-29.9,adult Z68.29 ; Acquired hypothyroidism E03.9 ; Reactive hypoglycemia E16.1 and Nutritional counseling Z71.3 [facility] [address] [address] 07/31/2024 JEAN CLAUDE REN Overweight (BMI 25.0-29.9) E66.3 ; BMI 29.0-29.9,adult Z68.29 ; Acquired hypothyroidism E03.9 ; Reactive hypoglycemia E16.1 ; Attention deficit hyperactivity disorder (ADHD), predominantly hyperactive type F90.1 ; Nutritional counseling Z71.3 and Blood pressure check Z01.30 [facility] [address] [address] 11/14/2024 MICHELLE BORHOT Overweight (BMI 25.0-29.9) E66.3 ; BMI 29.0-29.9,adult Z68.29 ; Adult ADHD F90.9 ; Acquired hypothyroidism E03.9 and Breast atypical hyperplasia N60.99 [facility] [address] [address] 01/15/2025 MICHELLE BORHOT Overweight (BMI 25.0-29.9) E66.3 ; BMI 29.0-29.9,adult Z68.29 ; Adult ADHD F90.9 ; Acquired hypothyroidism E03.9 and Breast atypical hyperplasia N60.99 [facility] [address] [facility] [address] [place] [address] 02/24/2024 JEAN CLAUDE [place] [facility] [address] [place] [address] 05/08/2024 JEAN CLAUDE [place] [facility] [address] [facility] [address] [place] [address] 06/21/2024 JEAN CLAUDE [place] [facility] [address] [place] [address] 06/30/2024 JEAN CLAUDE [place]IA [facility] [address] [place] [address] 11/14/2024 JEAN CLAUDE [place] [facility] [address] [place] [address] 11/15/2024 MICHELLE DE LEON [facility] [address] [place] [address] 11/15/2024 MICHELLE EDMONDHOT [facility] [address] [address] 12/26/2024 MICHELLE MAYITOHOT [facility] [address] [place] [address] 12/28/2024 MICHELLE BORHOT [facility] [address] [address] 01/15/2025 MICHELLE BORHOT [facility] [address] [place] [address] 01/17/2025 MICHELLE DE LEON Assessments Encounter Date Diagnosis (ICD Code) Assessment Notes Treatment Notes Treatment Clinical Notes Section Notes 02/23/2024 Obesity (BMI 30-39.9) (ICD-10 - E66.9) Sophie is a 38-year-old female with a PMH of ALH/LCIS of the left breast, hypothyroidism, reactive hypoglycemia, hiatal hernia, GERD, gallstones that presents for weight management follow-up. Reviewed [facility] holistic and medical approach to weight loss with emphasis on lifestyle modification. 02/23/24: Weight: 172.2, BMI: 30.5. Patient down 3.8 pounds per home scale. In office scale reflects 2 pounds of weight loss with 9-day use of phentermine. SECA reviewed, reveals 2 pounds of fat loss moderately increased muscle mass. Patient is encouraged to continue making health-conscious diet choices and practicing portion control. Given she is physically active consistently, she is encouraged to strive for at least 1200-calorie/day to ensure adequate calorie intake. Recommending continued water intake, goal 60-80 ounces/day. 0.5mg MICC injection administered again today at the patients request. As it has only been a short time with use of phentermine, plan to continue 15 mg once daily with plan to follow-up in 1 month for continued evaluation. 01/18/2024: Weight: 174, BMI: 30.8 Reviewed SECA/goals for implementing sustainable lifestyle changes. Patient is encouraged to increase physical activity, goal 8-10k steps/day. Also discussed the importance of strength training with proper safety/body mechanics for maintenance of muscle mass/bone health. Patient encouraged to drink 60-80oz water/day. Reviewed the importance of adequate nutrition in terms of calorie and protein intake. Goal of 80-100g protein/day. Reviewed risks, benefits, and side effects of weight management medications including holistic approaches to weight loss/supplements, phentermine, Topamax, Contrave, metformin, and GLP-1 agonist. Patient interested in phentermine. Wary of GLP-1 agonist given biliary colic/gallstones and acid reflux. Baseline EKG reveals normal sinus rhythm, no ST/T wave changes to suggest ischemia. Rx for phentermine 15 mg once daily sent to pharmacy. Reviewed proper use and side effects including but not limited to increased/irregular heart rate, increased blood pressure, headache, and increased anxiety. Given the patient has a history of extreme reactions/intoleranc es to typical doses of medication, half of the traditional MICC dose was administered at her request, furthermore she is encouraged to discontinue phentermine should any atypical symptoms begin. All questions answered to the patient's satisfaction. Patient demonstrates understanding of diagnosis and treatments discussed. Follow-up at next scheduled appointment, sooner should any questions/concerns arise. Case discussed with collaborating physician Randy Herman who has reviewed the assessment/plan. Chart, medications, labs, and vital signs reviewed. Dictation completed with the use of [employer] voice recognition software, prone to medical misidentifications and grammatical errors. All errors are unintentional. Although the practitioner does try to identify and correct errors, some may be present. Please do not hesitate to contact the practitioner for clarification. Total time was 30 minutes spent with >50% on coordination of care and patient education. 04/02/2024 BMI 29.0-29.9,adult (ICD-10 - Z68.29) Sophie is a 38-year-old female with a PMH of ALH/LCIS of the left breast, hypothyroidism, PCOS, reactive hypoglycemia, hiatal hernia, GERD, gallstones that presents for weight management follow-up. Reviewed [facility] holistic and medical approach to weight loss with emphasis on lifestyle modification. 04/02/2024: Weight: 169, BMI: 29.9. Patient down approximately 6 pounds since establishing care. SECA reviewed. Patient is encouraged to continue making health-conscious diet choices, practicing portion control, and prioritizing protein intake. Discussed possibility of increasing dose of phentermine, patient would like to stay at current dose. Refill for phentermine 15 mg once daily provided. 0.5 mg MICC injection administered. Discussed possibility of adding berberine supplement for additional benefit of improving insulin sensitivity (pt with history of PCOS)/holistic approach to weight loss. 02/23/24: Weight: 172.2, BMI: 30.5. Patient down 3.8 pounds per home scale. In office scale reflects 2 pounds of weight loss with 9-day use of phentermine. SECA reviewed, reveals 2 pounds of fat loss moderately increased muscle mass. Patient is encouraged to continue making health-conscious diet choices and practicing portion control. Given she is physically active consistently, she is encouraged to strive for at least 1200-calorie/day to ensure adequate calorie intake. Recommending continued water intake, goal 60-80 ounces/day. 0.5mg MICC injection administered again today at the patients request. As it has only been a short time with use of phentermine, plan to continue 15 mg once daily with plan to follow-up in 1 month for continued evaluation. 01/18/2024: Weight: 174, BMI: 30.8 Reviewed SECA/goals for implementing sustainable lifestyle changes. Patient is encouraged to increase physical activity, goal 8-10k steps/day. Also discussed the importance of strength training with proper safety/body mechanics for maintenance of muscle mass/bone health. Patient encouraged to drink 60-80oz water/day. Reviewed the importance of adequate nutrition in terms of calorie and protein intake. Goal of 80-100g protein/day. Reviewed risks, benefits, and side effects of weight management medications including holistic approaches to weight loss/supplements, phentermine, Topamax, Contrave, metformin, and GLP-1 agonist. Patient interested in phentermine. Wary of GLP-1 agonist given biliary colic/gallstones and acid reflux. Baseline EKG reveals normal sinus rhythm, no ST/T wave changes to suggest ischemia. Rx for phentermine 15 mg once daily sent to pharmacy. Reviewed proper use and side effects including but not limited to increased/irregular heart rate, increased blood pressure, headache, and increased anxiety. Given the patient has a history of extreme reactions/intoleranc es to typical doses of medication, half of the traditional MICC dose was administered at her request, furthermore she is encouraged to discontinue phentermine should any atypical symptoms begin. All questions answered to the patient's satisfaction. Patient demonstrates understanding of diagnosis and treatments discussed. Follow-up at next scheduled appointment, sooner should any questions/concerns arise. Case discussed with collaborating physician Dwain Herman who has reviewed the assessment/plan. Chart, medications, labs, and vital signs reviewed. Dictation completed with the use of [employer] voice recognition software, prone to medical misidentifications and grammatical errors. All errors are unintentional. Although the practitioner does try to identify and correct errors, some may be present. Please do not hesitate to contact the practitioner for clarification. Total time was 30 minutes spent with >50% on coordination of care and patient education. 04/02/2024 Overweight (BMI 25.0-29.9) (ICD-10 - E66.3) Sophie is a 38-year-old female with a PMH of ALH/LCIS of the left breast, hypothyroidism, PCOS, reactive hypoglycemia, hiatal hernia, GERD, gallstones that presents for weight management follow-up. Reviewed [facility] holistic and medical approach to weight loss with emphasis on lifestyle modification. 04/02/2024: Weight: 169, BMI: 29.9. Patient down approximately 6 pounds since establishing care. SECA reviewed. Patient is encouraged to continue making health-conscious diet choices, practicing portion control, and prioritizing protein intake. Discussed possibility of increasing dose of phentermine, patient would like to stay at current dose. Refill for phentermine 15 mg once daily provided. 0.5 mg MICC injection administered. Discussed possibility of adding berberine supplement for additional benefit of improving insulin sensitivity (pt with history of PCOS)/holistic approach to weight loss. 02/23/24: Weight: 172.2, BMI: 30.5. Patient down 3.8 pounds per home scale. In office scale reflects 2 pounds of weight loss with 9-day use of phentermine. SECA reviewed, reveals 2 pounds of fat loss moderately increased muscle mass. Patient is encouraged to continue making health-conscious diet choices and practicing portion control. Given she is physically active consistently, she is encouraged to strive for at least 1200-calorie/day to ensure adequate calorie intake. Recommending continued water intake, goal 60-80 ounces/day. 0.5mg MICC injection administered again today at the patients request. As it has only been a short time with use of phentermine, plan to continue 15 mg once daily with plan to follow-up in 1 month for continued evaluation. 01/18/2024: Weight: 174, BMI: 30.8 Reviewed SECA/goals for implementing sustainable lifestyle changes. Patient is encouraged to increase physical activity, goal 8-10k steps/day. Also discussed the importance of strength training with proper safety/body mechanics for maintenance of muscle mass/bone health. Patient encouraged to drink 60-80oz water/day. Reviewed the importance of adequate nutrition in terms of calorie and protein intake. Goal of 80-100g protein/day. Reviewed risks, benefits, and side effects of weight management medications including holistic approaches to weight loss/supplements, phentermine, Topamax, Contrave, metformin, and GLP-1 agonist. Patient interested in phentermine. Wary of GLP-1 agonist given biliary colic/gallstones and acid reflux. Baseline EKG reveals normal sinus rhythm, no ST/T wave changes to suggest ischemia. Rx for phentermine 15 mg once daily sent to pharmacy. Reviewed proper use and side effects including but not limited to increased/irregular heart rate, increased blood pressure, headache, and increased anxiety. Given the patient has a history of extreme reactions/intoleranc es to typical doses of medication, half of the traditional MICC dose was administered at her request, furthermore she is encouraged to discontinue phentermine should any atypical symptoms begin. All questions answered to the patient's satisfaction. Patient demonstrates understanding of diagnosis and treatments discussed. Follow-up at next scheduled appointment, sooner should any questions/concerns arise. Case discussed with collaborating physician Dwain Herman who has reviewed the assessment/plan. Chart, medications, labs, and vital signs reviewed. Dictation completed with the use of [email or web address] voice recognition software, prone to medical misidentifications and grammatical errors. All errors are unintentional. Although the practitioner does try to identify and correct errors, some may be present. Please do not hesitate to contact the practitioner for clarification. Total time was 30 minutes spent with >50% on coordination of care and patient education. 05/03/2024 Overweight (BMI 25.0-29.9) (ICD-10 - E66.3) Sophie is a 38-year-old female with a PMH of ALH/LCIS of the left breast, hypothyroidism, PCOS, reactive hypoglycemia, hiatal hernia, GERD, gallstones that presents for weight management follow-up. Reviewed [facility] holistic and medical approach to weight loss with emphasis on lifestyle modification. 05/03/2024: Weight: 167, BMI: 29.6. Patient annual 80 pounds. SECA reviewed, reveals fat loss with maintenance of muscle mass. Patient is encouraged to continue making health-conscious diet choices and prioritizing protein intake. Discussed possibility of exercising 3 to 4 days/week to allow for rest daily. Patient educated on the importance of decompression/stress management for healthy weight loss. Plan to increase dose of phentermine to 30 mg once daily. Will send as 15 mg 2 tablets once daily so that the patient may decrease dose if she experiences side effects. Plan to follow-up in 1 month. 04/02/2024: Weight: 169, BMI: 29.9. Patient down approximately 6 pounds since establishing care. SECA reviewed. Patient is encouraged to continue making health-conscious diet choices, practicing portion control, and prioritizing protein intake. Discussed possibility of increasing dose of phentermine, patient would like to stay at current dose. Refill for phentermine 15 mg once daily provided. 0.5 mg MICC injection administered. Discussed possibility of adding berberine supplement for additional benefit of improving insulin sensitivity (pt with history of PCOS)/holistic approach to weight loss. 02/23/24: Weight: 172.2, BMI: 30.5. Patient down 3.8 pounds per home scale. In office scale reflects 2 pounds of weight loss with 9-day use of phentermine. SECA reviewed, reveals 2 pounds of fat loss moderately increased muscle mass. Patient is encouraged to continue making health-conscious diet choices and practicing portion control. Given she is physically active consistently, she is encouraged to strive for at least 1200-calorie/day to ensure adequate calorie intake. Recommending continued water intake, goal 60-80 ounces/day. 0.5mg MICC injection administered again today at the patients request. As it has only been a short time with use of phentermine, plan to continue 15 mg once daily with plan to follow-up in 1 month for continued evaluation. 01/18/2024: Weight: 174, BMI: 30.8 Reviewed SECA/goals for implementing sustainable lifestyle changes. Patient is encouraged to increase physical activity, goal 8-10k steps/day. Also discussed the importance of strength training with proper safety/body mechanics for maintenance of muscle mass/bone health. Patient encouraged to drink 60-80oz water/day. Reviewed the importance of adequate nutrition in terms of calorie and protein intake. Goal of 80-100g protein/day. Reviewed risks, benefits, and side effects of weight management medications including holistic approaches to weight loss/supplements, phentermine, Topamax, Contrave, metformin, and GLP-1 agonist. Patient interested in phentermine. Wary of GLP-1 agonist given biliary colic/gallstones and acid reflux. Baseline EKG reveals normal sinus rhythm, no ST/T wave changes to suggest ischemia. Rx for phentermine 15 mg once daily sent to pharmacy. Reviewed proper use and side effects including but not limited to increased/irregular heart rate, increased blood pressure, headache, and increased anxiety. Given the patient has a history of extreme reactions/intoleranc es to typical doses of medication, half of the traditional MICC dose was administered at her request, furthermore she is encouraged to discontinue phentermine should any atypical symptoms begin. All questions answered to the patient's satisfaction. Patient demonstrates understanding of diagnosis and treatments discussed. Follow-up at next scheduled appointment, sooner should any questions/concerns arise. Case discussed with collaborating physician Dwain Herman who has reviewed the assessment/plan. Chart, medications, labs, and vital signs reviewed. Dictation completed with the use of [email or web address] voice recognition software, prone to medical misidentifications and grammatical errors. All errors are unintentional. Although the practitioner does try to identify and correct errors, some may be present. Please do not hesitate to contact the practitioner for clarification. Total time was 30 minutes spent with >50% on coordination of care and patient education. 06/05/2024 Overweight (BMI 25.0-29.9) (ICD-10 - E66.3) Sophie is a 38-year-old female with a PMH of ALH/LCIS of the left breast, hypothyroidism, PCOS, reactive hypoglycemia, hiatal hernia, GERD, gallstones that presents for weight management follow-up. Reviewed [facility] holistic and medical approach to weight loss with emphasis on lifestyle modification. 06/05/24: Weight: 166, BMI: 29.4. Patient's weight is down 1.7 pounds. SECA reviewed, reveals 2 pounds of fat loss with maintenance of muscle mass. Waist circumference down 1 inch. Patient is dedicated to lifestyle changes including maintaining a healthy diet, hydrating adequately, and exercising daily. Discussed importance of adequate nutrition with goal of continued weight loss/improving metabolic health. Given her underlying PCOS discussed option of alternative weight loss medication Zepbound/Wegovy. Patient may benefit from mechanism of action of GLP-1 agonist. Patient would like to continue phentermine 15 mg for now. She will research Zepbound, she is hesitant to try this medication as she does not want to be on it long-term and she appears it well exacerbate her underlying gallstones/indigesti on due to hiatal hernia. 05/03/2024: Weight: 167, BMI: 29.6. Patient annual 80 pounds. SECA reviewed, reveals fat loss with maintenance of muscle mass. Patient is encouraged to continue making health-conscious diet choices and prioritizing protein intake. Discussed possibility of exercising 3 to 4 days/week to allow for rest daily. Patient educated on the importance of decompression/stress management for healthy weight loss. Plan to increase dose of phentermine to 30 mg once daily. Will send as 15 mg 2 tablets once daily so that the patient may decrease dose if she experiences side effects. Plan to follow-up in 1 month. 04/02/2024: Weight: 169, BMI: 29.9. Patient down approximately 6 pounds since establishing care. SECA reviewed. Patient is encouraged to continue making health-conscious diet choices, practicing portion control, and prioritizing protein intake. Discussed possibility of increasing dose of phentermine, patient would like to stay at current dose. Refill for phentermine 15 mg once daily provided. 0.5 mg MICC injection administered. Discussed possibility of adding berberine supplement for additional benefit of improving insulin sensitivity (pt with history of PCOS)/holistic approach to weight loss. 02/23/24: Weight: 172.2, BMI: 30.5. Patient down 3.8 pounds per home scale. In office scale reflects 2 pounds of weight loss with 9-day use of phentermine. SECA reviewed, reveals 2 pounds of fat loss moderately increased muscle mass. Patient is encouraged to continue making health-conscious diet choices and practicing portion control. Given she is physically active consistently, she is encouraged to strive for at least 1200-calorie/day to ensure adequate calorie intake. Recommending continued water intake, goal 60-80 ounces/day. 0.5mg MICC injection administered again today at the patients request. As it has only been a short time with use of phentermine, plan to continue 15 mg once daily with plan to follow-up in 1 month for continued evaluation. 01/18/2024: Weight: 174, BMI: 30.8 Reviewed SECA/goals for implementing sustainable lifestyle changes. Patient is encouraged to increase physical activity, goal 8-10k steps/day. Also discussed the importance of strength training with proper safety/body mechanics for maintenance of muscle mass/bone health. Patient encouraged to drink 60-80oz water/day. Reviewed the importance of adequate nutrition in terms of calorie and protein intake. Goal of 80-100g protein/day. Reviewed risks, benefits, and side effects of weight management medications including holistic approaches to weight loss/supplements, phentermine, Topamax, Contrave, metformin, and GLP-1 agonist. Patient interested in phentermine. Wary of GLP-1 agonist given biliary colic/gallstones and acid reflux. Baseline EKG reveals normal sinus rhythm, no ST/T wave changes to suggest ischemia. Rx for phentermine 15 mg once daily sent to pharmacy. Reviewed proper use and side effects including but not limited to increased/irregular heart rate, increased blood pressure, headache, and increased anxiety. Given the patient has a history of extreme reactions/intoleranc es to typical doses of medication, half of the traditional MICC dose was administered at her request, furthermore she is encouraged to discontinue phentermine should any atypical symptoms begin. All questions answered to the patient's satisfaction. Patient demonstrates understanding of diagnosis and treatments discussed. Follow-up at next scheduled appointment, sooner should any questions/concerns arise. Case discussed with collaborating physician Dwain Herman who has reviewed the assessment/plan. Chart, medications, labs, and vital signs reviewed. Dictation completed with the use of [email or web address] voice recognition software, prone to medical misidentifications and grammatical errors. All errors are unintentional. Although the practitioner does try to identify and correct errors, some may be present. Please do not hesitate to contact the practitioner for clarification. Total time was 30 minutes spent with >50% on coordination of care and patient education. 07/31/2024 BMI 29.0-29.9,adult (ICD-10 - Z68.29) Sophie is a 38-year-old female with a PMH of ALH/LCIS of the left breast, hypothyroidism, PCOS, reactive hypoglycemia, ADHD, hiatal hernia, GERD, gallstones that presents for weight management follow-up. Reviewed [facility] holistic and medical approach to weight loss with emphasis on lifestyle modification. 07/31/2024: Weight: 165, BMI: 29.2. Weight is down 1 pound. SECA reviewed, reveals fat loss with improvement in muscle mass. Overall improved body composition. She is encouraged to continue making health-conscious diet choices - reviewed importance of adequate nutrition with goal of prioritizing nutrient rich/protein dense foods. She is encouraged to continue hydrating adequately and exercising regularly. Reviewed alternative medications such as GLP-1 agonist, patient not comfortable pursuing the alternative due to side effect profile. #ADHD: Patient with history of ADHD. Previously treated with stimulants as a child. Positive response to 6 month course of phentermine. During encounters patient displays characteristics of both inattentive and hyperactive - type ADHD (predominately hyperactive type). Recommending patient establish care with mental health provider with goal of reinitiating treatment with daily stimulant. Recommended [facility]. 06/05/24: Weight: 166, BMI: 29.4. 05/03/2024: Weight: 167, BMI: 29.6. 04/02/2024: Weight: 169, BMI: 29.9. 02/23/24: Weight: 172.2, BMI: 30.5. 01/18/2024: Weight: 174, BMI: 30.8. All questions answered to the patient's satisfaction. Patient demonstrates understanding of diagnosis and treatments discussed. Follow-up at next scheduled appointment, sooner should any questions/concerns arise. Case discussed with collaborating physician Dwain Herman who has reviewed the assessment/plan. Chart, medications, labs, and vital signs reviewed. Dictation completed with the use of [email or web address] voice recognition software, prone to medical misidentifications and grammatical errors. All errors are unintentional. Although the practitioner does try to identify and correct errors, some may be present. Please do not hesitate to contact the practitioner for clarification. Total time was 30 minutes spent with >50% on coordination of care and patient education. 07/31/2024 Overweight (BMI 25.0-29.9) (ICD-10 - E66.3) Sophie is a 38-year-old female with a PMH of ALH/LCIS of the left breast, hypothyroidism, PCOS, reactive hypoglycemia, ADHD, hiatal hernia, GERD, gallstones that presents for weight management follow-up. Reviewed [facility] holistic and medical approach to weight loss with emphasis on lifestyle modification. 07/31/2024: Weight: 165, BMI: 29.2. Weight is down 1 pound. SECA reviewed, reveals fat loss with improvement in muscle mass. Overall improved body composition. She is encouraged to continue making health-conscious diet choices - reviewed importance of adequate nutrition with goal of prioritizing nutrient rich/protein dense foods. She is encouraged to continue hydrating adequately and exercising regularly. Reviewed alternative medications such as GLP-1 agonist, patient not comfortable pursuing the alternative due to side effect profile. #ADHD: Patient with history of ADHD. Previously treated with stimulants as a child. Positive response to 6 month course of phentermine. During encounters patient displays characteristics of both inattentive and hyperactive - type ADHD (predominately hyperactive type). Recommending patient establish care with mental health provider with goal of reinitiating treatment with daily stimulant. Recommended [facility]. 06/05/24: Weight: 166, BMI: 29.4. 05/03/2024: Weight: 167, BMI: 29.6. 04/02/2024: Weight: 169, BMI: 29.9. 02/23/24: Weight: 172.2, BMI: 30.5. 01/18/2024: Weight: 174, BMI: 30.8. All questions answered to the patient's satisfaction. Patient demonstrates understanding of diagnosis and treatments discussed. Follow-up at next scheduled appointment, sooner should any questions/concerns arise. Case discussed with collaborating physician Dwain Herman who has reviewed the assessment/plan. Chart, medications, labs, and vital signs reviewed. Dictation completed with the use of [email or web address] voice recognition software, prone to medical misidentifications and grammatical errors. All errors are unintentional. Although the practitioner does try to identify and correct errors, some may be present. Please do not hesitate to contact the practitioner for clarification. Total time was 30 minutes spent with >50% on coordination of care and patient education. 01/15/2025 BMI 29.0-29.9,adult (ICD-10 - Z68.29) #Weight Management 01/15/2025 Will continue on phentermine for now We discussed maybe starting low-dose dual incretin given her PCOS and to help neurohormonal dysregulation She is in precontemplative state Total time spent today was 30 minutes of which greater than 50% was spent on coordinating and counseling Patient has been found to be overweight with a BMI of (29). Patient has overweight class per BMI standards We are a board certified obesity and weight management practice Patient has trialed behavioral modification, dietary restrictions and exercise for a minimum of 6 months The most recent [place] [employer]ocrin[employer] and [place] [employer] guidelines recommend patients who have overweight BMI or obesity BMI, who also have metabolic syndrome, prediabetes, HLD, and other comorbidities or at risk of developing type 2 diabetes should aim for a weight loss goal of at least 10% of the baseline body weight Patient counseled regarding effects of GLP/GIP-1 agonists, and other FDA approved wgt loss meds with regards to a multifactorial approach of weight loss as mentioned above and not solely appetite suppression. Of note, some information is being carried forward from prior records for informational purposes only and is being cited so that efficiency, safety and quality of the patient's care is not compromised This note was prepared using voice recognition software and direct typing Please excuse inadvertent professor of genetics or typing errors, or uncorrected word substitutions Although every attempt has been made by the provider to proofread this document, occasional misspellings and typographical errors may still be present Due to the previous pandemic, and the use of personal protective equipment (PPE) This may decrease voice recognition accuracy Inadvertent professor of genetics errors may occur 01/15/2025 Overweight (BMI 25.0-29.9) (ICD-10 - E66.3) #Weight Management 01/15/2025 Will continue on phentermine for now We discussed maybe starting low-dose dual incretin given her PCOS and to help neurohormonal dysregulation She is in precontemplative state Total time spent today was 30 minutes of which greater than 50% was spent on coordinating and counseling Patient has been found to be overweight with a BMI of (29). Patient has overweight class per BMI standards We are a board certified obesity and weight management practice Patient has trialed behavioral modification, dietary restrictions and exercise for a minimum of 6 months The most recent [place] [employer]ocrinologists and [place] [employer] guidelines recommend patients who have overweight BMI or obesity BMI, who also have metabolic syndrome, prediabetes, HLD, and other comorbidities or at risk of developing type 2 diabetes should aim for a weight loss goal of at least 10% of the baseline body weight Patient counseled regarding effects of GLP/GIP-1 agonists, and other FDA approved wgt loss meds with regards to a multifactorial approach of weight loss as mentioned above and not solely appetite suppression. Of note, some information is being carried forward from prior records for informational purposes only and is being cited so that efficiency, safety and quality of the patient's care is not compromised This note was prepared using voice recognition software and direct typing Please excuse inadvertent professor of genetics or typing errors, or uncorrected word substitutions Although every attempt has been made by the provider to proofread this document, occasional misspellings and typographical errors may still be present Due to the previous pandemic, and the use of personal protective equipment (PPE) This may decrease voice recognition accuracy Inadvertent professor of genetics errors may occur 11/14/2024 Overweight (BMI 25.0-29.9) (ICD-10 - E66.3) #Weight Management 11/14/2024 Will resume the patient on phentermine Will update comprehensive labs including thyroid function Total time spent today was 30 minutes of which greater than 50% was spent on coordinating and counseling Patient has been found to be overweight with a BMI of (29). Patient has overweight class per BMI standards We are a board certified obesity and weight management practice Patient has trialed behavioral modification, dietary restrictions and exercise for a minimum of 6 months The most recent [place] [employer]ocrinologists and [place] [employer] guidelines recommend patients who have overweight BMI or obesity BMI, who also have metabolic syndrome, prediabetes, HLD, and other comorbidities or at risk of developing type 2 diabetes should aim for a weight loss goal of at least 10% of the baseline body weight Patient counseled regarding effects of GLP/GIP-1 agonists, and other FDA approved wgt loss meds with regards to a multifactorial approach of weight loss as mentioned above and not solely appetite suppression. Of note, some information is being carried forward from prior records for informational purposes only and is being cited so that efficiency, safety and quality of the patient's care is not compromised This note was prepared using voice recognition software and direct typing Please excuse inadvertent professor of genetics or typing errors, or uncorrected word substitutions Although every attempt has been made by the provider to proofread this document, occasional misspellings and typographical errors may still be present Due to the previous pandemic, and the use of personal protective equipment (PPE) This may decrease voice recognition accuracy Inadvertent professor of genetics errors may occur 01/15/2025 Adult ADHD (ICD-10 - F90.9) #Weight Management 01/15/2025 Will continue on phentermine for now We discussed maybe starting low-dose dual incretin given her PCOS and to help neurohormonal dysregulation She is in precontemplative state Total time spent today was 30 minutes of which greater than 50% was spent on coordinating and counseling Patient has been found to be overweight with a BMI of (29). Patient has overweight class per BMI standards We are a board certified obesity and weight management practice Patient has trialed behavioral modification, dietary restrictions and exercise for a minimum of 6 months The most recent [place] [employer]ocrinologists and [place] [employer] guidelines recommend patients who have overweight BMI or obesity BMI, who also have metabolic syndrome, prediabetes, HLD, and other comorbidities or at risk of developing type 2 diabetes should aim for a weight loss goal of at least 10% of the baseline body weight Patient counseled regarding effects of GLP/GIP-1 agonists, and other FDA approved wgt loss meds with regards to a multifactorial approach of weight loss as mentioned above and not solely appetite suppression. Of note, some information is being carried forward from prior records for informational purposes only and is being cited so that efficiency, safety and quality of the patient's care is not compromised This note was prepared using voice recognition software and direct typing Please excuse inadvertent professor of genetics or typing errors, or uncorrected word substitutions Although every attempt has been made by the provider to proofread this document, occasional misspellings and typographical errors may still be present Due to the previous pandemic, and the use of personal protective equipment (PPE) This may decrease voice recognition accuracy Inadvertent professor of genetics errors may occur 11/14/2024 BMI 29.0-29.9,adult (ICD-10 - Z68.29) #Weight Management 11/14/2024 Will resume the patient on phentermine Will update comprehensive labs including thyroid function Total time spent today was 30 minutes of which greater than 50% was spent on coordinating and counseling Patient has been found to be overweight with a BMI of (29). Patient has overweight class per BMI standards We are a board certified obesity and weight management practice Patient has trialed behavioral modification, dietary restrictions and exercise for a minimum of 6 months The most recent [place] [employer]ocrinologists and [place] [employer] guidelines recommend patients who have overweight BMI or obesity BMI, who also have metabolic syndrome, prediabetes, HLD, and other comorbidities or at risk of developing type 2 diabetes should aim for a weight loss goal of at least 10% of the baseline body weight Patient counseled regarding effects of GLP/GIP-1 agonists, and other FDA approved wgt loss meds with regards to a multifactorial approach of weight loss as mentioned above and not solely appetite suppression. Of note, some information is being carried forward from prior records for informational purposes only and is being cited so that efficiency, safety and quality of the patient's care is not compromised This note was prepared using voice recognition software and direct typing Please excuse inadvertent professor of genetics or typing errors, or uncorrected word substitutions Although every attempt has been made by the provider to proofread this document, occasional misspellings and typographical errors may still be present Due to the previous pandemic, and the use of personal protective equipment (PPE) This may decrease voice recognition accuracy Inadvertent professor of genetics errors may occur 07/31/2024 Acquired hypothyroidism (ICD-10 - E03.9) Sophie is a 38-year-old female with a PMH of ALH/LCIS of the left breast, hypothyroidism, PCOS, reactive hypoglycemia, ADHD, hiatal hernia, GERD, gallstones that presents for weight management follow-up. Reviewed [facility] holistic and medical approach to weight loss with emphasis on lifestyle modification. 07/31/2024: Weight: 165, BMI: 29.2. Weight is down 1 pound. SECA reviewed, reveals fat loss with improvement in muscle mass. Overall improved body composition. She is encouraged to continue making health-conscious diet choices - reviewed importance of adequate nutrition with goal of prioritizing nutrient rich/protein dense foods. She is encouraged to continue hydrating adequately and exercising regularly. Reviewed alternative medications such as GLP-1 agonist, patient not comfortable pursuing the alternative due to side effect profile. #ADHD: Patient with history of ADHD. Previously treated with stimulants as a child. Positive response to 6 month course of phentermine. During encounters patient displays characteristics of both inattentive and hyperactive - type ADHD (predominately hyperactive type). Recommending patient establish care with mental health provider with goal of reinitiating treatment with daily stimulant. Recommended [facility]. 06/05/24: Weight: 166, BMI: 29.4. 05/03/2024: Weight: 167, BMI: 29.6. 04/02/2024: Weight: 169, BMI: 29.9. 02/23/24: Weight: 172.2, BMI: 30.5. 01/18/2024: Weight: 174, BMI: 30.8. All questions answered to the patient's satisfaction. Patient demonstrates understanding of diagnosis and treatments discussed. Follow-up at next scheduled appointment, sooner should any questions/concerns arise. Case discussed with collaborating physician Dwain Herman who has reviewed the assessment/plan. Chart, medications, labs, and vital signs reviewed. Dictation completed with the use of [email or web address] voice recognition software, prone to medical misidentifications and grammatical errors. All errors are unintentional. Although the practitioner does try to identify and correct errors, some may be present. Please do not hesitate to contact the practitioner for clarification. Total time was 30 minutes spent with >50% on coordination of care and patient education. 06/05/2024 BMI 29.0-29.9,adult (ICD-10 - Z68.29) Sophie is a 38-year-old female with a PMH of ALH/LCIS of the left breast, hypothyroidism, PCOS, reactive hypoglycemia, hiatal hernia, GERD, gallstones that presents for weight management follow-up. Reviewed [facility] holistic and medical approach to weight loss with emphasis on lifestyle modification. 06/05/24: Weight: 166, BMI: 29.4. Patient's weight is down 1.7 pounds. SECA reviewed, reveals 2 pounds of fat loss with maintenance of muscle mass. Waist circumference down 1 inch. Patient is dedicated to lifestyle changes including maintaining a healthy diet, hydrating adequately, and exercising daily. Discussed importance of adequate nutrition with goal of continued weight loss/improving metabolic health. Given her underlying PCOS discussed option of alternative weight loss medication Zepbound/Wegovy. Patient may benefit from mechanism of action of GLP-1 agonist. Patient would like to continue phentermine 15 mg for now. She will research Zepbound, she is hesitant to try this medication as she does not want to be on it long-term and she appears it well exacerbate her underlying gallstones/indigesti on due to hiatal hernia. 05/03/2024: Weight: 167, BMI: 29.6. Patient annual 80 pounds. SECA reviewed, reveals fat loss with maintenance of muscle mass. Patient is encouraged to continue making health-conscious diet choices and prioritizing protein intake. Discussed possibility of exercising 3 to 4 days/week to allow for rest daily. Patient educated on the importance of decompression/stress management for healthy weight loss. Plan to increase dose of phentermine to 30 mg once daily. Will send as 15 mg 2 tablets once daily so that the patient may decrease dose if she experiences side effects. Plan to follow-up in 1 month. 04/02/2024: Weight: 169, BMI: 29.9. Patient down approximately 6 pounds since establishing care. SECA reviewed. Patient is encouraged to continue making health-conscious diet choices, practicing portion control, and prioritizing protein intake. Discussed possibility of increasing dose of phentermine, patient would like to stay at current dose. Refill for phentermine 15 mg once daily provided. 0.5 mg MICC injection administered. Discussed possibility of adding berberine supplement for additional benefit of improving insulin sensitivity (pt with history of PCOS)/holistic approach to weight loss. 02/23/24: Weight: 172.2, BMI: 30.5. Patient down 3.8 pounds per home scale. In office scale reflects 2 pounds of weight loss with 9-day use of phentermine. SECA reviewed, reveals 2 pounds of fat loss moderately increased muscle mass. Patient is encouraged to continue making health-conscious diet choices and practicing portion control. Given she is physically active consistently, she is encouraged to strive for at least 1200-calorie/day to ensure adequate calorie intake. Recommending continued water intake, goal 60-80 ounces/day. 0.5mg MICC injection administered again today at the patients request. As it has only been a short time with use of phentermine, plan to continue 15 mg once daily with plan to follow-up in 1 month for continued evaluation. 01/18/2024: Weight: 174, BMI: 30.8 Reviewed SECA/goals for implementing sustainable lifestyle changes. Patient is encouraged to increase physical activity, goal 8-10k steps/day. Also discussed the importance of strength training with proper safety/body mechanics for maintenance of muscle mass/bone health. Patient encouraged to drink 60-80oz water/day. Reviewed the importance of adequate nutrition in terms of calorie and protein intake. Goal of 80-100g protein/day. Reviewed risks, benefits, and side effects of weight management medications including holistic approaches to weight loss/supplements, phentermine, Topamax, Contrave, metformin, and GLP-1 agonist. Patient interested in phentermine. Wary of GLP-1 agonist given biliary colic/gallstones and acid reflux. Baseline EKG reveals normal sinus rhythm, no ST/T wave changes to suggest ischemia. Rx for phentermine 15 mg once daily sent to pharmacy. Reviewed proper use and side effects including but not limited to increased/irregular heart rate, increased blood pressure, headache, and increased anxiety. Given the patient has a history of extreme reactions/intoleranc es to typical doses of medication, half of the traditional MICC dose was administered at her request, furthermore she is encouraged to discontinue phentermine should any atypical symptoms begin. All questions answered to the patient's satisfaction. Patient demonstrates understanding of diagnosis and treatments discussed. Follow-up at next scheduled appointment, sooner should any questions/concerns arise. Case discussed with collaborating physician Dwain Herman who has reviewed the assessment/plan. Chart, medications, labs, and vital signs reviewed. Dictation completed with the use of [email or web address] voice recognition software, prone to medical misidentifications and grammatical errors. All errors are unintentional. Although the practitioner does try to identify and correct errors, some may be present. Please do not hesitate to contact the practitioner for clarification. Total time was 30 minutes spent with >50% on coordination of care and patient education. 05/03/2024 BMI 29.0-29.9,adult (ICD-10 - Z68.29) Sophie is a 38-year-old female with a PMH of ALH/LCIS of the left breast, hypothyroidism, PCOS, reactive hypoglycemia, hiatal hernia, GERD, gallstones that presents for weight management follow-up. Reviewed [facility] holistic and medical approach to weight loss with emphasis on lifestyle modification. 05/03/2024: Weight: 167, BMI: 29.6. Patient annual 80 pounds. SECA reviewed, reveals fat loss with maintenance of muscle mass. Patient is encouraged to continue making health-conscious diet choices and prioritizing protein intake. Discussed possibility of exercising 3 to 4 days/week to allow for rest daily. Patient educated on the importance of decompression/stress management for healthy weight loss. Plan to increase dose of phentermine to 30 mg once daily. Will send as 15 mg 2 tablets once daily so that the patient may decrease dose if she experiences side effects. Plan to follow-up in 1 month. 04/02/2024: Weight: 169, BMI: 29.9. Patient down approximately 6 pounds since establishing care. SECA reviewed. Patient is encouraged to continue making health-conscious diet choices, practicing portion control, and prioritizing protein intake. Discussed possibility of increasing dose of phentermine, patient would like to stay at current dose. Refill for phentermine 15 mg once daily provided. 0.5 mg MICC injection administered. Discussed possibility of adding berberine supplement for additional benefit of improving insulin sensitivity (pt with history of PCOS)/holistic approach to weight loss. 02/23/24: Weight: 172.2, BMI: 30.5. Patient down 3.8 pounds per home scale. In office scale reflects 2 pounds of weight loss with 9-day use of phentermine. SECA reviewed, reveals 2 pounds of fat loss moderately increased muscle mass. Patient is encouraged to continue making health-conscious diet choices and practicing portion control. Given she is physically active consistently, she is encouraged to strive for at least 1200-calorie/day to ensure adequate calorie intake. Recommending continued water intake, goal 60-80 ounces/day. 0.5mg MICC injection administered again today at the patients request. As it has only been a short time with use of phentermine, plan to continue 15 mg once daily with plan to follow-up in 1 month for continued evaluation. 01/18/2024: Weight: 174, BMI: 30.8 Reviewed SECA/goals for implementing sustainable lifestyle changes. Patient is encouraged to increase physical activity, goal 8-10k steps/day. Also discussed the importance of strength training with proper safety/body mechanics for maintenance of muscle mass/bone health. Patient encouraged to drink 60-80oz water/day. Reviewed the importance of adequate nutrition in terms of calorie and protein intake. Goal of 80-100g protein/day. Reviewed risks, benefits, and side effects of weight management medications including holistic approaches to weight loss/supplements, phentermine, Topamax, Contrave, metformin, and GLP-1 agonist. Patient interested in phentermine. Wary of GLP-1 agonist given biliary colic/gallstones and acid reflux. Baseline EKG reveals normal sinus rhythm, no ST/T wave changes to suggest ischemia. Rx for phentermine 15 mg once daily sent to pharmacy. Reviewed proper use and side effects including but not limited to increased/irregular heart rate, increased blood pressure, headache, and increased anxiety. Given the patient has a history of extreme reactions/intoleranc es to typical doses of medication, half of the traditional MICC dose was administered at her request, furthermore she is encouraged to discontinue phentermine should any atypical symptoms begin. All questions answered to the patient's satisfaction. Patient demonstrates understanding of diagnosis and treatments discussed. Follow-up at next scheduled appointment, sooner should any questions/concerns arise. Case discussed with collaborating physician Dwain Herman who has reviewed the assessment/plan. Chart, medications, labs, and vital signs reviewed. Dictation completed with the use of [email or web address] voice recognition software, prone to medical misidentifications and grammatical errors. All errors are unintentional. Although the practitioner does try to identify and correct errors, some may be present. Please do not hesitate to contact the practitioner for clarification. Total time was 30 minutes spent with >50% on coordination of care and patient education. 02/23/2024 BMI 30.0-30.9,adult (ICD-10 - Z68.30) Sophie is a 38-year-old female with a PMH of ALH/LCIS of the left breast, hypothyroidism, reactive hypoglycemia, hiatal hernia, GERD, gallstones that presents for weight management follow-up. Reviewed [facility] holistic and medical approach to weight loss with emphasis on lifestyle modification. 02/23/24: Weight: 172.2, BMI: 30.5. Patient down 3.8 pounds per home scale. In office scale reflects 2 pounds of weight loss with 9-day use of phentermine. SECA reviewed, reveals 2 pounds of fat loss moderately increased muscle mass. Patient is encouraged to continue making health-conscious diet choices and practicing portion control. Given she is physically active consistently, she is encouraged to strive for at least 1200-calorie/day to ensure adequate calorie intake. Recommending continued water intake, goal 60-80 ounces/day. 0.5mg MICC injection administered again today at the patients request. As it has only been a short time with use of phentermine, plan to continue 15 mg once daily with plan to follow-up in 1 month for continued evaluation. 01/18/2024: Weight: 174, BMI: 30.8 Reviewed SECA/goals for implementing sustainable lifestyle changes. Patient is encouraged to increase physical activity, goal 8-10k steps/day. Also discussed the importance of strength training with proper safety/body mechanics for maintenance of muscle mass/bone health. Patient encouraged to drink 60-80oz water/day. Reviewed the importance of adequate nutrition in terms of calorie and protein intake. Goal of 80-100g protein/day. Reviewed risks, benefits, and side effects of weight management medications including holistic approaches to weight loss/supplements, phentermine, Topamax, Contrave, metformin, and GLP-1 agonist. Patient interested in phentermine. Wary of GLP-1 agonist given biliary colic/gallstones and acid reflux. Baseline EKG reveals normal sinus rhythm, no ST/T wave changes to suggest ischemia. Rx for phentermine 15 mg once daily sent to pharmacy. Reviewed proper use and side effects including but not limited to increased/irregular heart rate, increased blood pressure, headache, and increased anxiety. Given the patient has a history of extreme reactions/intoleranc es to typical doses of medication, half of the traditional MICC dose was administered at her request, furthermore she is encouraged to discontinue phentermine should any atypical symptoms begin. All questions answered to the patient's satisfaction. Patient demonstrates understanding of diagnosis and treatments discussed. Follow-up at next scheduled appointment, sooner should any questions/concerns arise. Case discussed with collaborating physician Randy Herman who has reviewed the assessment/plan. Chart, medications, labs, and vital signs reviewed. Dictation completed with the use of [email or web address] voice recognition software, prone to medical misidentifications and grammatical errors. All errors are unintentional. Although the practitioner does try to identify and correct errors, some may be present. Please do not hesitate to contact the practitioner for clarification. Total time was 30 minutes spent with >50% on coordination of care and patient education. 02/23/2024 Acquired hypothyroidism (ICD-10 - E03.9) Sophie is a 38-year-old female with a PMH of ALH/LCIS of the left breast, hypothyroidism, reactive hypoglycemia, hiatal hernia, GERD, gallstones that presents for weight management follow-up. Reviewed [facility] holistic and medical approach to weight loss with emphasis on lifestyle modification. 02/23/24: Weight: 172.2, BMI: 30.5. Patient down 3.8 pounds per home scale. In office scale reflects 2 pounds of weight loss with 9-day use of phentermine. SECA reviewed, reveals 2 pounds of fat loss moderately increased muscle mass. Patient is encouraged to continue making health-conscious diet choices and practicing portion control. Given she is physically active consistently, she is encouraged to strive for at least 1200-calorie/day to ensure adequate calorie intake. Recommending continued water intake, goal 60-80 ounces/day. 0.5mg MICC injection administered again today at the patients request. As it has only been a short time with use of phentermine, plan to continue 15 mg once daily with plan to follow-up in 1 month for continued evaluation. 01/18/2024: Weight: 174, BMI: 30.8 Reviewed SECA/goals for implementing sustainable lifestyle changes. Patient is encouraged to increase physical activity, goal 8-10k steps/day. Also discussed the importance of strength training with proper safety/body mechanics for maintenance of muscle mass/bone health. Patient encouraged to drink 60-80oz water/day. Reviewed the importance of adequate nutrition in terms of calorie and protein intake. Goal of 80-100g protein/day. Reviewed risks, benefits, and side effects of weight management medications including holistic approaches to weight loss/supplements, phentermine, Topamax, Contrave, metformin, and GLP-1 agonist. Patient interested in phentermine. Wary of GLP-1 agonist given biliary colic/gallstones and acid reflux. Baseline EKG reveals normal sinus rhythm, no ST/T wave changes to suggest ischemia. Rx for phentermine 15 mg once daily sent to pharmacy. Reviewed proper use and side effects including but not limited to increased/irregular heart rate, increased blood pressure, headache, and increased anxiety. Given the patient has a history of extreme reactions/intoleranc es to typical doses of medication, half of the traditional MICC dose was administered at her request, furthermore she is encouraged to discontinue phentermine should any atypical symptoms begin. All questions answered to the patient's satisfaction. Patient demonstrates understanding of diagnosis and treatments discussed. Follow-up at next scheduled appointment, sooner should any questions/concerns arise. Case discussed with collaborating physician Randy Herman who has reviewed the assessment/plan. Chart, medications, labs, and vital signs reviewed. Dictation completed with the use of [email or web address] voice recognition software, prone to medical misidentifications and grammatical errors. All errors are unintentional. Although the practitioner does try to identify and correct errors, some may be present. Please do not hesitate to contact the practitioner for clarification. Total time was 30 minutes spent with >50% on coordination of care and patient education. 05/03/2024 Acquired hypothyroidism (ICD-10 - E03.9) Sophie is a 38-year-old female with a PMH of ALH/LCIS of the left breast, hypothyroidism, PCOS, reactive hypoglycemia, hiatal hernia, GERD, gallstones that presents for weight management follow-up. Reviewed [facility] holistic and medical approach to weight loss with emphasis on lifestyle modification. 05/03/2024: Weight: 167, BMI: 29.6. Patient annual 80 pounds. SECA reviewed, reveals fat loss with maintenance of muscle mass. Patient is encouraged to continue making health-conscious diet choices and prioritizing protein intake. Discussed possibility of exercising 3 to 4 days/week to allow for rest daily. Patient educated on the importance of decompression/stress management for healthy weight loss. Plan to increase dose of phentermine to 30 mg once daily. Will send as 15 mg 2 tablets once daily so that the patient may decrease dose if she experiences side effects. Plan to follow-up in 1 month. 04/02/2024: Weight: 169, BMI: 29.9. Patient down approximately 6 pounds since establishing care. SECA reviewed. Patient is encouraged to continue making health-conscious diet choices, practicing portion control, and prioritizing protein intake. Discussed possibility of increasing dose of phentermine, patient would like to stay at current dose. Refill for phentermine 15 mg once daily provided. 0.5 mg MICC injection administered. Discussed possibility of adding berberine supplement for additional benefit of improving insulin sensitivity (pt with history of PCOS)/holistic approach to weight loss. 02/23/24: Weight: 172.2, BMI: 30.5. Patient down 3.8 pounds per home scale. In office scale reflects 2 pounds of weight loss with 9-day use of phentermine. SECA reviewed, reveals 2 pounds of fat loss moderately increased muscle mass. Patient is encouraged to continue making health-conscious diet choices and practicing portion control. Given she is physically active consistently, she is encouraged to strive for at least 1200-calorie/day to ensure adequate calorie intake. Recommending continued water intake, goal 60-80 ounces/day. 0.5mg MICC injection administered again today at the patients request. As it has only been a short time with use of phentermine, plan to continue 15 mg once daily with plan to follow-up in 1 month for continued evaluation. 01/18/2024: Weight: 174, BMI: 30.8 Reviewed SECA/goals for implementing sustainable lifestyle changes. Patient is encouraged to increase physical activity, goal 8-10k steps/day. Also discussed the importance of strength training with proper safety/body mechanics for maintenance of muscle mass/bone health. Patient encouraged to drink 60-80oz water/day. Reviewed the importance of adequate nutrition in terms of calorie and protein intake. Goal of 80-100g protein/day. Reviewed risks, benefits, and side effects of weight management medications including holistic approaches to weight loss/supplements, phentermine, Topamax, Contrave, metformin, and GLP-1 agonist. Patient interested in phentermine. Wary of GLP-1 agonist given biliary colic/gallstones and acid reflux. Baseline EKG reveals normal sinus rhythm, no ST/T wave changes to suggest ischemia. Rx for phentermine 15 mg once daily sent to pharmacy. Reviewed proper use and side effects including but not limited to increased/irregular heart rate, increased blood pressure, headache, and increased anxiety. Given the patient has a history of extreme reactions/intoleranc es to typical doses of medication, half of the traditional MICC dose was administered at her request, furthermore she is encouraged to discontinue phentermine should any atypical symptoms begin. All questions answered to the patient's satisfaction. Patient demonstrates understanding of diagnosis and treatments discussed. Follow-up at next scheduled appointment, sooner should any questions/concerns arise. Case discussed with collaborating physician Dwain Herman who has reviewed the assessment/plan. Chart, medications, labs, and vital signs reviewed. Dictation completed with the use of [email or web address] voice recognition software, prone to medical misidentifications and grammatical errors. All errors are unintentional. Although the practitioner does try to identify and correct errors, some may be present. Please do not hesitate to contact the practitioner for clarification. Total time was 30 minutes spent with >50% on coordination of care and patient education. 04/02/2024 Acquired hypothyroidism (ICD-10 - E03.9) Sophie is a 38-year-old female with a PMH of ALH/LCIS of the left breast, hypothyroidism, PCOS, reactive hypoglycemia, hiatal hernia, GERD, gallstones that presents for weight management follow-up. Reviewed [facility] holistic and medical approach to weight loss with emphasis on lifestyle modification. 04/02/2024: Weight: 169, BMI: 29.9. Patient down approximately 6 pounds since establishing care. SECA reviewed. Patient is encouraged to continue making health-conscious diet choices, practicing portion control, and prioritizing protein intake. Discussed possibility of increasing dose of phentermine, patient would like to stay at current dose. Refill for phentermine 15 mg once daily provided. 0.5 mg MICC injection administered. Discussed possibility of adding berberine supplement for additional benefit of improving insulin sensitivity (pt with history of PCOS)/holistic approach to weight loss. 02/23/24: Weight: 172.2, BMI: 30.5. Patient down 3.8 pounds per home scale. In office scale reflects 2 pounds of weight loss with 9-day use of phentermine. SECA reviewed, reveals 2 pounds of fat loss moderately increased muscle mass. Patient is encouraged to continue making health-conscious diet choices and practicing portion control. Given she is physically active consistently, she is encouraged to strive for at least 1200-calorie/day to ensure adequate calorie intake. Recommending continued water intake, goal 60-80 ounces/day. 0.5mg MICC injection administered again today at the patients request. As it has only been a short time with use of phentermine, plan to continue 15 mg once daily with plan to follow-up in 1 month for continued evaluation. 01/18/2024: Weight: 174, BMI: 30.8 Reviewed SECA/goals for implementing sustainable lifestyle changes. Patient is encouraged to increase physical activity, goal 8-10k steps/day. Also discussed the importance of strength training with proper safety/body mechanics for maintenance of muscle mass/bone health. Patient encouraged to drink 60-80oz water/day. Reviewed the importance of adequate nutrition in terms of calorie and protein intake. Goal of 80-100g protein/day. Reviewed risks, benefits, and side effects of weight management medications including holistic approaches to weight loss/supplements, phentermine, Topamax, Contrave, metformin, and GLP-1 agonist. Patient interested in phentermine. Wary of GLP-1 agonist given biliary colic/gallstones and acid reflux. Baseline EKG reveals normal sinus rhythm, no ST/T wave changes to suggest ischemia. Rx for phentermine 15 mg once daily sent to pharmacy. Reviewed proper use and side effects including but not limited to increased/irregular heart rate, increased blood pressure, headache, and increased anxiety. Given the patient has a history of extreme reactions/intoleranc es to typical doses of medication, half of the traditional MICC dose was administered at her request, furthermore she is encouraged to discontinue phentermine should any atypical symptoms begin. All questions answered to the patient's satisfaction. Patient demonstrates understanding of diagnosis and treatments discussed. Follow-up at next scheduled appointment, sooner should any questions/concerns arise. Case discussed with collaborating physician Dwain Herman who has reviewed the assessment/plan. Chart, medications, labs, and vital signs reviewed. Dictation completed with the use of [email or web address] voice recognition software, prone to medical misidentifications and grammatical errors. All errors are unintentional. Although the practitioner does try to identify and correct errors, some may be present. Please do not hesitate to contact the practitioner for clarification. Total time was 30 minutes spent with >50% on coordination of care and patient education. 06/05/2024 Acquired hypothyroidism (ICD-10 - E03.9) Sophie is a 38-year-old female with a PMH of ALH/LCIS of the left breast, hypothyroidism, PCOS, reactive hypoglycemia, hiatal hernia, GERD, gallstones that presents for weight management follow-up. Reviewed [facility] holistic and medical approach to weight loss with emphasis on lifestyle modification. 06/05/24: Weight: 166, BMI: 29.4. Patient's weight is down 1.7 pounds. SECA reviewed, reveals 2 pounds of fat loss with maintenance of muscle mass. Waist circumference down 1 inch. Patient is dedicated to lifestyle changes including maintaining a healthy diet, hydrating adequately, and exercising daily. Discussed importance of adequate nutrition with goal of continued weight loss/improving metabolic health. Given her underlying PCOS discussed option of alternative weight loss medication Zepbound/Wegovy. Patient may benefit from mechanism of action of GLP-1 agonist. Patient would like to continue phentermine 15 mg for now. She will research Zepbound, she is hesitant to try this medication as she does not want to be on it long-term and she appears it well exacerbate her underlying gallstones/indigesti on due to hiatal hernia. 05/03/2024: Weight: 167, BMI: 29.6. Patient annual 80 pounds. SECA reviewed, reveals fat loss with maintenance of muscle mass. Patient is encouraged to continue making health-conscious diet choices and prioritizing protein intake. Discussed possibility of exercising 3 to 4 days/week to allow for rest daily. Patient educated on the importance of decompression/stress management for healthy weight loss. Plan to increase dose of phentermine to 30 mg once daily. Will send as 15 mg 2 tablets once daily so that the patient may decrease dose if she experiences side effects. Plan to follow-up in 1 month. 04/02/2024: Weight: 169, BMI: 29.9. Patient down approximately 6 pounds since establishing care. SECA reviewed. Patient is encouraged to continue making health-conscious diet choices, practicing portion control, and prioritizing protein intake. Discussed possibility of increasing dose of phentermine, patient would like to stay at current dose. Refill for phentermine 15 mg once daily provided. 0.5 mg MICC injection administered. Discussed possibility of adding berberine supplement for additional benefit of improving insulin sensitivity (pt with history of PCOS)/holistic approach to weight loss. 02/23/24: Weight: 172.2, BMI: 30.5. Patient down 3.8 pounds per home scale. In office scale reflects 2 pounds of weight loss with 9-day use of phentermine. SECA reviewed, reveals 2 pounds of fat loss moderately increased muscle mass. Patient is encouraged to continue making health-conscious diet choices and practicing portion control. Given she is physically active consistently, she is encouraged to strive for at least 1200-calorie/day to ensure adequate calorie intake. Recommending continued water intake, goal 60-80 ounces/day. 0.5mg MICC injection administered again today at the patients request. As it has only been a short time with use of phentermine, plan to continue 15 mg once daily with plan to follow-up in 1 month for continued evaluation. 01/18/2024: Weight: 174, BMI: 30.8 Reviewed SECA/goals for implementing sustainable lifestyle changes. Patient is encouraged to increase physical activity, goal 8-10k steps/day. Also discussed the importance of strength training with proper safety/body mechanics for maintenance of muscle mass/bone health. Patient encouraged to drink 60-80oz water/day. Reviewed the importance of adequate nutrition in terms of calorie and protein intake. Goal of 80-100g protein/day. Reviewed risks, benefits, and side effects of weight management medications including holistic approaches to weight loss/supplements, phentermine, Topamax, Contrave, metformin, and GLP-1 agonist. Patient interested in phentermine. Wary of GLP-1 agonist given biliary colic/gallstones and acid reflux. Baseline EKG reveals normal sinus rhythm, no ST/T wave changes to suggest ischemia. Rx for phentermine 15 mg once daily sent to pharmacy. Reviewed proper use and side effects including but not limited to increased/irregular heart rate, increased blood pressure, headache, and increased anxiety. Given the patient has a history of extreme reactions/intoleranc es to typical doses of medication, half of the traditional MICC dose was administered at her request, furthermore she is encouraged to discontinue phentermine should any atypical symptoms begin. All questions answered to the patient's satisfaction. Patient demonstrates understanding of diagnosis and treatments discussed. Follow-up at next scheduled appointment, sooner should any questions/concerns arise. Case discussed with collaborating physician Dwain Herman who has reviewed the assessment/plan. Chart, medications, labs, and vital signs reviewed. Dictation completed with the use of [email or web address] voice recognition software, prone to medical misidentifications and grammatical errors. All errors are unintentional. Although the practitioner does try to identify and correct errors, some may be present. Please do not hesitate to contact the practitioner for clarification. Total time was 30 minutes spent with >50% on coordination of care and patient education. 07/31/2024 Reactive hypoglycemia (ICD-10 - E16.1) Sophie is a 38-year-old female with a PMH of ALH/LCIS of the left breast, hypothyroidism, PCOS, reactive hypoglycemia, ADHD, hiatal hernia, GERD, gallstones that presents for weight management follow-up. Reviewed [facility] holistic and medical approach to weight loss with emphasis on lifestyle modification. 07/31/2024: Weight: 165, BMI: 29.2. Weight is down 1 pound. SECA reviewed, reveals fat loss with improvement in muscle mass. Overall improved body composition. She is encouraged to continue making health-conscious diet choices - reviewed importance of adequate nutrition with goal of prioritizing nutrient rich/protein dense foods. She is encouraged to continue hydrating adequately and exercising regularly. Reviewed alternative medications such as GLP-1 agonist, patient not comfortable pursuing the alternative due to side effect profile. #ADHD: Patient with history of ADHD. Previously treated with stimulants as a child. Positive response to 6 month course of phentermine. During encounters patient displays characteristics of both inattentive and hyperactive - type ADHD (predominately hyperactive type). Recommending patient establish care with mental health provider with goal of reinitiating treatment with daily stimulant. Recommended [facility]. 06/05/24: Weight: 166, BMI: 29.4. 05/03/2024: Weight: 167, BMI: 29.6. 04/02/2024: Weight: 169, BMI: 29.9. 02/23/24: Weight: 172.2, BMI: 30.5. 01/18/2024: Weight: 174, BMI: 30.8. All questions answered to the patient's satisfaction. Patient demonstrates understanding of diagnosis and treatments discussed. Follow-up at next scheduled appointment, sooner should any questions/concerns arise. Case discussed with collaborating physician Dwain Herman who has reviewed the assessment/plan. Chart, medications, labs, and vital signs reviewed. Dictation completed with the use of [email or web address] voice recognition software, prone to medical misidentifications and grammatical errors. All errors are unintentional. Although the practitioner does try to identify and correct errors, some may be present. Please do not hesitate to contact the practitioner for clarification. Total time was 30 minutes spent with >50% on coordination of care and patient education. 11/14/2024 Adult ADHD (ICD-10 - F90.9) #Weight Management 11/14/2024 Will resume the patient on phentermine Will update comprehensive labs including thyroid function Total time spent today was 30 minutes of which greater than 50% was spent on coordinating and counseling Patient has been found to be overweight with a BMI of (29). Patient has overweight class per BMI standards We are a board certified obesity and weight management practice Patient has trialed behavioral modification, dietary restrictions and exercise for a minimum of 6 months The most recent [place] [employer]in[employer] and [place] [employer] guidelines recommend patients who have overweight BMI or obesity BMI, who also have metabolic syndrome, prediabetes, HLD, and other comorbidities or at risk of developing type 2 diabetes should aim for a weight loss goal of at least 10% of the baseline body weight Patient counseled regarding effects of GLP/GIP-1 agonists, and other FDA approved wgt loss meds with regards to a multifactorial approach of weight loss as mentioned above and not solely appetite suppression. Of note, some information is being carried forward from prior records for informational purposes only and is being cited so that efficiency, safety and quality of the patient's care is not compromised This note was prepared using voice recognition software and direct typing Please excuse inadvertent professor of genetics or typing errors, or uncorrected word substitutions Although every attempt has been made by the provider to proofread this document, occasional misspellings and typographical errors may still be present Due to the previous pandemic, and the use of personal protective equipment (PPE) This may decrease voice recognition accuracy Inadvertent professor of genetics errors may occur 01/15/2025 Acquired hypothyroidism (ICD-10 - E03.9) #Weight Management 01/15/2025 Will continue on phentermine for now We discussed maybe starting low-dose dual incretin given her PCOS and to help neurohormonal dysregulation She is in precontemplative state Total time spent today was 30 minutes of which greater than 50% was spent on coordinating and counseling Patient has been found to be overweight with a BMI of (29). Patient has overweight class per BMI standards We are a board certified obesity and weight management practice Patient has trialed behavioral modification, dietary restrictions and exercise for a minimum of 6 months The most recent [place] [employer]in[employer] and [place] [employer] guidelines recommend patients who have overweight BMI or obesity BMI, who also have metabolic syndrome, prediabetes, HLD, and other comorbidities or at risk of developing type 2 diabetes should aim for a weight loss goal of at least 10% of the baseline body weight Patient counseled regarding effects of GLP/GIP-1 agonists, and other FDA approved wgt loss meds with regards to a multifactorial approach of weight loss as mentioned above and not solely appetite suppression. Of note, some information is being carried forward from prior records for informational purposes only and is being cited so that efficiency, safety and quality of the patient's care is not compromised This note was prepared using voice recognition software and direct typing Please excuse inadvertent professor of genetics or typing errors, or uncorrected word substitutions Although every attempt has been made by the provider to proofread this document, occasional misspellings and typographical errors may still be present Due to the previous pandemic, and the use of personal protective equipment (PPE) This may decrease voice recognition accuracy Inadvertent professor of genetics errors may occur 11/14/2024 Acquired hypothyroidism (ICD-10 - E03.9) #Weight Management 11/14/2024 Will resume the patient on phentermine Will update comprehensive labs including thyroid function Total time spent today was 30 minutes of which greater than 50% was spent on coordinating and counseling Patient has been found to be overweight with a BMI of (29). Patient has overweight class per BMI standards We are a board certified obesity and weight management practice Patient has trialed behavioral modification, dietary restrictions and exercise for a minimum of 6 months The most recent [place] [employer]ocrinologists and [place] [employer] guidelines recommend patients who have overweight BMI or obesity BMI, who also have metabolic syndrome, prediabetes, HLD, and other comorbidities or at risk of developing type 2 diabetes should aim for a weight loss goal of at least 10% of the baseline body weight Patient counseled regarding effects of GLP/GIP-1 agonists, and other FDA approved wgt loss meds with regards to a multifactorial approach of weight loss as mentioned above and not solely appetite suppression. Of note, some information is being carried forward from prior records for informational purposes only and is being cited so that efficiency, safety and quality of the patient's care is not compromised This note was prepared using voice recognition software and direct typing Please excuse inadvertent professor of genetics or typing errors, or uncorrected word substitutions Although every attempt has been made by the provider to proofread this document, occasional misspellings and typographical errors may still be present Due to the previous pandemic, and the use of personal protective equipment (PPE) This may decrease voice recognition accuracy Inadvertent professor of genetics errors may occur 01/15/2025 Breast atypical hyperplasia (ICD-10 - N60.99) #Weight Management 01/15/2025 Will continue on phentermine for now We discussed maybe starting low-dose dual incretin given her PCOS and to help neurohormonal dysregulation She is in precontemplative state Total time spent today was 30 minutes of which greater than 50% was spent on coordinating and counseling Patient has been found to be overweight with a BMI of (29). Patient has overweight class per BMI standards We are a board certified obesity and weight management practice Patient has trialed behavioral modification, dietary restrictions and exercise for a minimum of 6 months The most recent [place] [employer]ocrinologists and [place] [employer] guidelines recommend patients who have overweight BMI or obesity BMI, who also have metabolic syndrome, prediabetes, HLD, and other comorbidities or at risk of developing type 2 diabetes should aim for a weight loss goal of at least 10% of the baseline body weight Patient counseled regarding effects of GLP/GIP-1 agonists, and other FDA approved wgt loss meds with regards to a multifactorial approach of weight loss as mentioned above and not solely appetite suppression. Of note, some information is being carried forward from prior records for informational purposes only and is being cited so that efficiency, safety and quality of the patient's care is not compromised This note was prepared using voice recognition software and direct typing Please excuse inadvertent professor of genetics or typing errors, or uncorrected word substitutions Although every attempt has been made by the provider to proofread this document, occasional misspellings and typographical errors may still be present Due to the previous pandemic, and the use of personal protective equipment (PPE) This may decrease voice recognition accuracy Inadvertent professor of genetics errors may occur 06/05/2024 Reactive hypoglycemia (ICD-10 - E16.1) Sophie is a 38-year-old female with a PMH of ALH/LCIS of the left breast, hypothyroidism, PCOS, reactive hypoglycemia, hiatal hernia, GERD, gallstones that presents for weight management follow-up. Reviewed [facility] holistic and medical approach to weight loss with emphasis on lifestyle modification. 06/05/24: Weight: 166, BMI: 29.4. Patient's weight is down 1.7 pounds. SECA reviewed, reveals 2 pounds of fat loss with maintenance of muscle mass. Waist circumference down 1 inch. Patient is dedicated to lifestyle changes including maintaining a healthy diet, hydrating adequately, and exercising daily. Discussed importance of adequate nutrition with goal of continued weight loss/improving metabolic health. Given her underlying PCOS discussed option of alternative weight loss medication Zepbound/Wegovy. Patient may benefit from mechanism of action of GLP-1 agonist. Patient would like to continue phentermine 15 mg for now. She will research Zepbound, she is hesitant to try this medication as she does not want to be on it long-term and she appears it well exacerbate her underlying gallstones/indigesti on due to hiatal hernia. 05/03/2024: Weight: 167, BMI: 29.6. Patient annual 80 pounds. SECA reviewed, reveals fat loss with maintenance of muscle mass. Patient is encouraged to continue making health-conscious diet choices and prioritizing protein intake. Discussed possibility of exercising 3 to 4 days/week to allow for rest daily. Patient educated on the importance of decompression/stress management for healthy weight loss. Plan to increase dose of phentermine to 30 mg once daily. Will send as 15 mg 2 tablets once daily so that the patient may decrease dose if she experiences side effects. Plan to follow-up in 1 month. 04/02/2024: Weight: 169, BMI: 29.9. Patient down approximately 6 pounds since establishing care. SECA reviewed. Patient is encouraged to continue making health-conscious diet choices, practicing portion control, and prioritizing protein intake. Discussed possibility of increasing dose of phentermine, patient would like to stay at current dose. Refill for phentermine 15 mg once daily provided. 0.5 mg MICC injection administered. Discussed possibility of adding berberine supplement for additional benefit of improving insulin sensitivity (pt with history of PCOS)/holistic approach to weight loss. 02/23/24: Weight: 172.2, BMI: 30.5. Patient down 3.8 pounds per home scale. In office scale reflects 2 pounds of weight loss with 9-day use of phentermine. SECA reviewed, reveals 2 pounds of fat loss moderately increased muscle mass. Patient is encouraged to continue making health-conscious diet choices and practicing portion control. Given she is physically active consistently, she is encouraged to strive for at least 1200-calorie/day to ensure adequate calorie intake. Recommending continued water intake, goal 60-80 ounces/day. 0.5mg MICC injection administered again today at the patients request. As it has only been a short time with use of phentermine, plan to continue 15 mg once daily with plan to follow-up in 1 month for continued evaluation. 01/18/2024: Weight: 174, BMI: 30.8 Reviewed SECA/goals for implementing sustainable lifestyle changes. Patient is encouraged to increase physical activity, goal 8-10k steps/day. Also discussed the importance of strength training with proper safety/body mechanics for maintenance of muscle mass/bone health. Patient encouraged to drink 60-80oz water/day. Reviewed the importance of adequate nutrition in terms of calorie and protein intake. Goal of 80-100g protein/day. Reviewed risks, benefits, and side effects of weight management medications including holistic approaches to weight loss/supplements, phentermine, Topamax, Contrave, metformin, and GLP-1 agonist. Patient interested in phentermine. Wary of GLP-1 agonist given biliary colic/gallstones and acid reflux. Baseline EKG reveals normal sinus rhythm, no ST/T wave changes to suggest ischemia. Rx for phentermine 15 mg once daily sent to pharmacy. Reviewed proper use and side effects including but not limited to increased/irregular heart rate, increased blood pressure, headache, and increased anxiety. Given the patient has a history of extreme reactions/intoleranc es to typical doses of medication, half of the traditional MICC dose was administered at her request, furthermore she is encouraged to discontinue phentermine should any atypical symptoms begin. All questions answered to the patient's satisfaction. Patient demonstrates understanding of diagnosis and treatments discussed. Follow-up at next scheduled appointment, sooner should any questions/concerns arise. Case discussed with collaborating physician Dwain Herman who has reviewed the assessment/plan. Chart, medications, labs, and vital signs reviewed. Dictation completed with the use of [email or web address] voice recognition software, prone to medical misidentifications and grammatical errors. All errors are unintentional. Although the practitioner does try to identify and correct errors, some may be present. Please do not hesitate to contact the practitioner for clarification. Total time was 30 minutes spent with >50% on coordination of care and patient education. 07/31/2024 Attention deficit hyperactivity disorder (ADHD), predominantly hyperactive type (ICD-10 - F90.1) Sophie is a 38-year-old female with a PMH of ALH/LCIS of the left breast, hypothyroidism, PCOS, reactive hypoglycemia, ADHD, hiatal hernia, GERD, gallstones that presents for weight management follow-up. Reviewed [facility] holistic and medical approach to weight loss with emphasis on lifestyle modification. 07/31/2024: Weight: 165, BMI: 29.2. Weight is down 1 pound. SECA reviewed, reveals fat loss with improvement in muscle mass. Overall improved body composition. She is encouraged to continue making health-conscious diet choices - reviewed importance of adequate nutrition with goal of prioritizing nutrient rich/protein dense foods. She is encouraged to continue hydrating adequately and exercising regularly. Reviewed alternative medications such as GLP-1 agonist, patient not comfortable pursuing the alternative due to side effect profile. #ADHD: Patient with history of ADHD. Previously treated with stimulants as a child. Positive response to 6 month course of phentermine. During encounters patient displays characteristics of both inattentive and hyperactive - type ADHD (predominately hyperactive type). Recommending patient establish care with mental health provider with goal of reinitiating treatment with daily stimulant. Recommended [facility]. 06/05/24: Weight: 166, BMI: 29.4. 05/03/2024: Weight: 167, BMI: 29.6. 04/02/2024: Weight: 169, BMI: 29.9. 02/23/24: Weight: 172.2, BMI: 30.5. 01/18/2024: Weight: 174, BMI: 30.8. All questions answered to the patient's satisfaction. Patient demonstrates understanding of diagnosis and treatments discussed. Follow-up at next scheduled appointment, sooner should any questions/concerns arise. Case discussed with collaborating physician Dwain Herman who has reviewed the assessment/plan. Chart, medications, labs, and vital signs reviewed. Dictation completed with the use of [email or web address] voice recognition software, prone to medical misidentifications and grammatical errors. All errors are unintentional. Although the practitioner does try to identify and correct errors, some may be present. Please do not hesitate to contact the practitioner for clarification. Total time was 30 minutes spent with >50% on coordination of care and patient education. 05/03/2024 Reactive hypoglycemia (ICD-10 - E16.1) Sophie is a 38-year-old female with a PMH of ALH/LCIS of the left breast, hypothyroidism, PCOS, reactive hypoglycemia, hiatal hernia, GERD, gallstones that presents for weight management follow-up. Reviewed [facility] holistic and medical approach to weight loss with emphasis on lifestyle modification. 05/03/2024: Weight: 167, BMI: 29.6. Patient annual 80 pounds. SECA reviewed, reveals fat loss with maintenance of muscle mass. Patient is encouraged to continue making health-conscious diet choices and prioritizing protein intake. Discussed possibility of exercising 3 to 4 days/week to allow for rest daily. Patient educated on the importance of decompression/stress management for healthy weight loss. Plan to increase dose of phentermine to 30 mg once daily. Will send as 15 mg 2 tablets once daily so that the patient may decrease dose if she experiences side effects. Plan to follow-up in 1 month. 04/02/2024: Weight: 169, BMI: 29.9. Patient down approximately 6 pounds since establishing care. SECA reviewed. Patient is encouraged to continue making health-conscious diet choices, practicing portion control, and prioritizing protein intake. Discussed possibility of increasing dose of phentermine, patient would like to stay at current dose. Refill for phentermine 15 mg once daily provided. 0.5 mg MICC injection administered. Discussed possibility of adding berberine supplement for additional benefit of improving insulin sensitivity (pt with history of PCOS)/holistic approach to weight loss. 02/23/24: Weight: 172.2, BMI: 30.5. Patient down 3.8 pounds per home scale. In office scale reflects 2 pounds of weight loss with 9-day use of phentermine. SECA reviewed, reveals 2 pounds of fat loss moderately increased muscle mass. Patient is encouraged to continue making health-conscious diet choices and practicing portion control. Given she is physically active consistently, she is encouraged to strive for at least 1200-calorie/day to ensure adequate calorie intake. Recommending continued water intake, goal 60-80 ounces/day. 0.5mg MICC injection administered again today at the patients request. As it has only been a short time with use of phentermine, plan to continue 15 mg once daily with plan to follow-up in 1 month for continued evaluation. 01/18/2024: Weight: 174, BMI: 30.8 Reviewed SECA/goals for implementing sustainable lifestyle changes. Patient is encouraged to increase physical activity, goal 8-10k steps/day. Also discussed the importance of strength training with proper safety/body mechanics for maintenance of muscle mass/bone health. Patient encouraged to drink 60-80oz water/day. Reviewed the importance of adequate nutrition in terms of calorie and protein intake. Goal of 80-100g protein/day. Reviewed risks, benefits, and side effects of weight management medications including holistic approaches to weight loss/supplements, phentermine, Topamax, Contrave, metformin, and GLP-1 agonist. Patient interested in phentermine. Wary of GLP-1 agonist given biliary colic/gallstones and acid reflux. Baseline EKG reveals normal sinus rhythm, no ST/T wave changes to suggest ischemia. Rx for phentermine 15 mg once daily sent to pharmacy. Reviewed proper use and side effects including but not limited to increased/irregular heart rate, increased blood pressure, headache, and increased anxiety. Given the patient has a history of extreme reactions/intoleranc es to typical doses of medication, half of the traditional MICC dose was administered at her request, furthermore she is encouraged to discontinue phentermine should any atypical symptoms begin. All questions answered to the patient's satisfaction. Patient demonstrates understanding of diagnosis and treatments discussed. Follow-up at next scheduled appointment, sooner should any questions/concerns arise. Case discussed with collaborating physician Dwain Herman who has reviewed the assessment/plan. Chart, medications, labs, and vital signs reviewed. Dictation completed with the use of [email or web address] voice recognition software, prone to medical misidentifications and grammatical errors. All errors are unintentional. Although the practitioner does try to identify and correct errors, some may be present. Please do not hesitate to contact the practitioner for clarification. Total time was 30 minutes spent with >50% on coordination of care and patient education. 04/02/2024 Reactive hypoglycemia (ICD-10 - E16.1) Sophie is a 38-year-old female with a PMH of ALH/LCIS of the left breast, hypothyroidism, PCOS, reactive hypoglycemia, hiatal hernia, GERD, gallstones that presents for weight management follow-up. Reviewed [facility] holistic and medical approach to weight loss with emphasis on lifestyle modification. 04/02/2024: Weight: 169, BMI: 29.9. Patient down approximately 6 pounds since establishing care. SECA reviewed. Patient is encouraged to continue making health-conscious diet choices, practicing portion control, and prioritizing protein intake. Discussed possibility of increasing dose of phentermine, patient would like to stay at current dose. Refill for phentermine 15 mg once daily provided. 0.5 mg MICC injection administered. Discussed possibility of adding berberine supplement for additional benefit of improving insulin sensitivity (pt with history of PCOS)/holistic approach to weight loss. 02/23/24: Weight: 172.2, BMI: 30.5. Patient down 3.8 pounds per home scale. In office scale reflects 2 pounds of weight loss with 9-day use of phentermine. SECA reviewed, reveals 2 pounds of fat loss moderately increased muscle mass. Patient is encouraged to continue making health-conscious diet choices and practicing portion control. Given she is physically active consistently, she is encouraged to strive for at least 1200-calorie/day to ensure adequate calorie intake. Recommending continued water intake, goal 60-80 ounces/day. 0.5mg MICC injection administered again today at the patients request. As it has only been a short time with use of phentermine, plan to continue 15 mg once daily with plan to follow-up in 1 month for continued evaluation. 01/18/2024: Weight: 174, BMI: 30.8 Reviewed SECA/goals for implementing sustainable lifestyle changes. Patient is encouraged to increase physical activity, goal 8-10k steps/day. Also discussed the importance of strength training with proper safety/body mechanics for maintenance of muscle mass/bone health. Patient encouraged to drink 60-80oz water/day. Reviewed the importance of adequate nutrition in terms of calorie and protein intake. Goal of 80-100g protein/day. Reviewed risks, benefits, and side effects of weight management medications including holistic approaches to weight loss/supplements, phentermine, Topamax, Contrave, metformin, and GLP-1 agonist. Patient interested in phentermine. Wary of GLP-1 agonist given biliary colic/gallstones and acid reflux. Baseline EKG reveals normal sinus rhythm, no ST/T wave changes to suggest ischemia. Rx for phentermine 15 mg once daily sent to pharmacy. Reviewed proper use and side effects including but not limited to increased/irregular heart rate, increased blood pressure, headache, and increased anxiety. Given the patient has a history of extreme reactions/intoleranc es to typical doses of medication, half of the traditional MICC dose was administered at her request, furthermore she is encouraged to discontinue phentermine should any atypical symptoms begin. All questions answered to the patient's satisfaction. Patient demonstrates understanding of diagnosis and treatments discussed. Follow-up at next scheduled appointment, sooner should any questions/concerns arise. Case discussed with collaborating physician Dwain Herman who has reviewed the assessment/plan. Chart, medications, labs, and vital signs reviewed. Dictation completed with the use of [email or web address] voice recognition software, prone to medical misidentifications and grammatical errors. All errors are unintentional. Although the practitioner does try to identify and correct errors, some may be present. Please do not hesitate to contact the practitioner for clarification. Total time was 30 minutes spent with >50% on coordination of care and patient education. 02/23/2024 Anxiety, generalized (ICD-10 - F41.1) Sophie is a 38-year-old female with a PMH of ALH/LCIS of the left breast, hypothyroidism, reactive hypoglycemia, hiatal hernia, GERD, gallstones that presents for weight management follow-up. Reviewed [facility] holistic and medical approach to weight loss with emphasis on lifestyle modification. 02/23/24: Weight: 172.2, BMI: 30.5. Patient down 3.8 pounds per home scale. In office scale reflects 2 pounds of weight loss with 9-day use of phentermine. SECA reviewed, reveals 2 pounds of fat loss moderately increased muscle mass. Patient is encouraged to continue making health-conscious diet choices and practicing portion control. Given she is physically active consistently, she is encouraged to strive for at least 1200-calorie/day to ensure adequate calorie intake. Recommending continued water intake, goal 60-80 ounces/day. 0.5mg MICC injection administered again today at the patients request. As it has only been a short time with use of phentermine, plan to continue 15 mg once daily with plan to follow-up in 1 month for continued evaluation. 01/18/2024: Weight: 174, BMI: 30.8 Reviewed SECA/goals for implementing sustainable lifestyle changes. Patient is encouraged to increase physical activity, goal 8-10k steps/day. Also discussed the importance of strength training with proper safety/body mechanics for maintenance of muscle mass/bone health. Patient encouraged to drink 60-80oz water/day. Reviewed the importance of adequate nutrition in terms of calorie and protein intake. Goal of 80-100g protein/day. Reviewed risks, benefits, and side effects of weight management medications including holistic approaches to weight loss/supplements, phentermine, Topamax, Contrave, metformin, and GLP-1 agonist. Patient interested in phentermine. Wary of GLP-1 agonist given biliary colic/gallstones and acid reflux. Baseline EKG reveals normal sinus rhythm, no ST/T wave changes to suggest ischemia. Rx for phentermine 15 mg once daily sent to pharmacy. Reviewed proper use and side effects including but not limited to increased/irregular heart rate, increased blood pressure, headache, and increased anxiety. Given the patient has a history of extreme reactions/intoleranc es to typical doses of medication, half of the traditional MICC dose was administered at her request, furthermore she is encouraged to discontinue phentermine should any atypical symptoms begin. All questions answered to the patient's satisfaction. Patient demonstrates understanding of diagnosis and treatments discussed. Follow-up at next scheduled appointment, sooner should any questions/concerns arise. Case discussed with collaborating physician Randy Herman who has reviewed the assessment/plan. Chart, medications, labs, and vital signs reviewed. Dictation completed with the use of [email or web address] voice recognition software, prone to medical misidentifications and grammatical errors. All errors are unintentional. Although the practitioner does try to identify and correct errors, some may be present. Please do not hesitate to contact the practitioner for clarification. Total time was 30 minutes spent with >50% on coordination of care and patient education. 02/23/2024 Screening for heart disease (ICD-10 - Z13.6) Sophie is a 38-year-old female with a PMH of ALH/LCIS of the left breast, hypothyroidism, reactive hypoglycemia, hiatal hernia, GERD, gallstones that presents for weight management follow-up. Reviewed [facility] holistic and medical approach to weight loss with emphasis on lifestyle modification. 02/23/24: Weight: 172.2, BMI: 30.5. Patient down 3.8 pounds per home scale. In office scale reflects 2 pounds of weight loss with 9-day use of phentermine. SECA reviewed, reveals 2 pounds of fat loss moderately increased muscle mass. Patient is encouraged to continue making health-conscious diet choices and practicing portion control. Given she is physically active consistently, she is encouraged to strive for at least 1200-calorie/day to ensure adequate calorie intake. Recommending continued water intake, goal 60-80 ounces/day. 0.5mg MICC injection administered again today at the patients request. As it has only been a short time with use of phentermine, plan to continue 15 mg once daily with plan to follow-up in 1 month for continued evaluation. 01/18/2024: Weight: 174, BMI: 30.8 Reviewed SECA/goals for implementing sustainable lifestyle changes. Patient is encouraged to increase physical activity, goal 8-10k steps/day. Also discussed the importance of strength training with proper safety/body mechanics for maintenance of muscle mass/bone health. Patient encouraged to drink 60-80oz water/day. Reviewed the importance of adequate nutrition in terms of calorie and protein intake. Goal of 80-100g protein/day. Reviewed risks, benefits, and side effects of weight management medications including holistic approaches to weight loss/supplements, phentermine, Topamax, Contrave, metformin, and GLP-1 agonist. Patient interested in phentermine. Wary of GLP-1 agonist given biliary colic/gallstones and acid reflux. Baseline EKG reveals normal sinus rhythm, no ST/T wave changes to suggest ischemia. Rx for phentermine 15 mg once daily sent to pharmacy. Reviewed proper use and side effects including but not limited to increased/irregular heart rate, increased blood pressure, headache, and increased anxiety. Given the patient has a history of extreme reactions/intoleranc es to typical doses of medication, half of the traditional MICC dose was administered at her request, furthermore she is encouraged to discontinue phentermine should any atypical symptoms begin. All questions answered to the patient's satisfaction. Patient demonstrates understanding of diagnosis and treatments discussed. Follow-up at next scheduled appointment, sooner should any questions/concerns arise. Case discussed with collaborating physician Randy Herman who has reviewed the assessment/plan. Chart, medications, labs, and vital signs reviewed. Dictation completed with the use of [email or web address] voice recognition software, prone to medical misidentifications and grammatical errors. All errors are unintentional. Although the practitioner does try to identify and correct errors, some may be present. Please do not hesitate to contact the practitioner for clarification. Total time was 30 minutes spent with >50% on coordination of care and patient education. 04/02/2024 Nutritional counseling (ICD-10 - Z71.3) Sophie is a 38-year-old female with a PMH of ALH/LCIS of the left breast, hypothyroidism, PCOS, reactive hypoglycemia, hiatal hernia, GERD, gallstones that presents for weight management follow-up. Reviewed [facility] holistic and medical approach to weight loss with emphasis on lifestyle modification. 04/02/2024: Weight: 169, BMI: 29.9. Patient down approximately 6 pounds since establishing care. SECA reviewed. Patient is encouraged to continue making health-conscious diet choices, practicing portion control, and prioritizing protein intake. Discussed possibility of increasing dose of phentermine, patient would like to stay at current dose. Refill for phentermine 15 mg once daily provided. 0.5 mg MICC injection administered. Discussed possibility of adding berberine supplement for additional benefit of improving insulin sensitivity (pt with history of PCOS)/holistic approach to weight loss. 02/23/24: Weight: 172.2, BMI: 30.5. Patient down 3.8 pounds per home scale. In office scale reflects 2 pounds of weight loss with 9-day use of phentermine. SECA reviewed, reveals 2 pounds of fat loss moderately increased muscle mass. Patient is encouraged to continue making health-conscious diet choices and practicing portion control. Given she is physically active consistently, she is encouraged to strive for at least 1200-calorie/day to ensure adequate calorie intake. Recommending continued water intake, goal 60-80 ounces/day. 0.5mg MICC injection administered again today at the patients request. As it has only been a short time with use of phentermine, plan to continue 15 mg once daily with plan to follow-up in 1 month for continued evaluation. 01/18/2024: Weight: 174, BMI: 30.8 Reviewed SECA/goals for implementing sustainable lifestyle changes. Patient is encouraged to increase physical activity, goal 8-10k steps/day. Also discussed the importance of strength training with proper safety/body mechanics for maintenance of muscle mass/bone health. Patient encouraged to drink 60-80oz water/day. Reviewed the importance of adequate nutrition in terms of calorie and protein intake. Goal of 80-100g protein/day. Reviewed risks, benefits, and side effects of weight management medications including holistic approaches to weight loss/supplements, phentermine, Topamax, Contrave, metformin, and GLP-1 agonist. Patient interested in phentermine. Wary of GLP-1 agonist given biliary colic/gallstones and acid reflux. Baseline EKG reveals normal sinus rhythm, no ST/T wave changes to suggest ischemia. Rx for phentermine 15 mg once daily sent to pharmacy. Reviewed proper use and side effects including but not limited to increased/irregular heart rate, increased blood pressure, headache, and increased anxiety. Given the patient has a history of extreme reactions/intoleranc es to typical doses of medication, half of the traditional MICC dose was administered at her request, furthermore she is encouraged to discontinue phentermine should any atypical symptoms begin. All questions answered to the patient's satisfaction. Patient demonstrates understanding of diagnosis and treatments discussed. Follow-up at next scheduled appointment, sooner should any questions/concerns arise. Case discussed with collaborating physician Dwain Herman who has reviewed the assessment/plan. Chart, medications, labs, and vital signs reviewed. Dictation completed with the use of [email or web address] voice recognition software, prone to medical misidentifications and grammatical errors. All errors are unintentional. Although the practitioner does try to identify and correct errors, some may be present. Please do not hesitate to contact the practitioner for clarification. Total time was 30 minutes spent with >50% on coordination of care and patient education. 05/03/2024 Nutritional counseling (ICD-10 - Z71.3) Sophie is a 38-year-old female with a PMH of ALH/LCIS of the left breast, hypothyroidism, PCOS, reactive hypoglycemia, hiatal hernia, GERD, gallstones that presents for weight management follow-up. Reviewed [facility] holistic and medical approach to weight loss with emphasis on lifestyle modification. 05/03/2024: Weight: 167, BMI: 29.6. Patient annual 80 pounds. SECA reviewed, reveals fat loss with maintenance of muscle mass. Patient is encouraged to continue making health-conscious diet choices and prioritizing protein intake. Discussed possibility of exercising 3 to 4 days/week to allow for rest daily. Patient educated on the importance of decompression/stress management for healthy weight loss. Plan to increase dose of phentermine to 30 mg once daily. Will send as 15 mg 2 tablets once daily so that the patient may decrease dose if she experiences side effects. Plan to follow-up in 1 month. 04/02/2024: Weight: 169, BMI: 29.9. Patient down approximately 6 pounds since establishing care. SECA reviewed. Patient is encouraged to continue making health-conscious diet choices, practicing portion control, and prioritizing protein intake. Discussed possibility of increasing dose of phentermine, patient would like to stay at current dose. Refill for phentermine 15 mg once daily provided. 0.5 mg MICC injection administered. Discussed possibility of adding berberine supplement for additional benefit of improving insulin sensitivity (pt with history of PCOS)/holistic approach to weight loss. 02/23/24: Weight: 172.2, BMI: 30.5. Patient down 3.8 pounds per home scale. In office scale reflects 2 pounds of weight loss with 9-day use of phentermine. SECA reviewed, reveals 2 pounds of fat loss moderately increased muscle mass. Patient is encouraged to continue making health-conscious diet choices and practicing portion control. Given she is physically active consistently, she is encouraged to strive for at least 1200-calorie/day to ensure adequate calorie intake. Recommending continued water intake, goal 60-80 ounces/day. 0.5mg MICC injection administered again today at the patients request. As it has only been a short time with use of phentermine, plan to continue 15 mg once daily with plan to follow-up in 1 month for continued evaluation. 01/18/2024: Weight: 174, BMI: 30.8 Reviewed SECA/goals for implementing sustainable lifestyle changes. Patient is encouraged to increase physical activity, goal 8-10k steps/day. Also discussed the importance of strength training with proper safety/body mechanics for maintenance of muscle mass/bone health. Patient encouraged to drink 60-80oz water/day. Reviewed the importance of adequate nutrition in terms of calorie and protein intake. Goal of 80-100g protein/day. Reviewed risks, benefits, and side effects of weight management medications including holistic approaches to weight loss/supplements, phentermine, Topamax, Contrave, metformin, and GLP-1 agonist. Patient interested in phentermine. Wary of GLP-1 agonist given biliary colic/gallstones and acid reflux. Baseline EKG reveals normal sinus rhythm, no ST/T wave changes to suggest ischemia. Rx for phentermine 15 mg once daily sent to pharmacy. Reviewed proper use and side effects including but not limited to increased/irregular heart rate, increased blood pressure, headache, and increased anxiety. Given the patient has a history of extreme reactions/intoleranc es to typical doses of medication, half of the traditional MICC dose was administered at her request, furthermore she is encouraged to discontinue phentermine should any atypical symptoms begin. All questions answered to the patient's satisfaction. Patient demonstrates understanding of diagnosis and treatments discussed. Follow-up at next scheduled appointment, sooner should any questions/concerns arise. Case discussed with collaborating physician Dwain Herman who has reviewed the assessment/plan. Chart, medications, labs, and vital signs reviewed. Dictation completed with the use of [email or web address] voice recognition software, prone to medical misidentifications and grammatical errors. All errors are unintentional. Although the practitioner does try to identify and correct errors, some may be present. Please do not hesitate to contact the practitioner for clarification. Total time was 30 minutes spent with >50% on coordination of care and patient education. 07/31/2024 Nutritional counseling (ICD-10 - Z71.3) Sophie is a 38-year-old female with a PMH of ALH/LCIS of the left breast, hypothyroidism, PCOS, reactive hypoglycemia, ADHD, hiatal hernia, GERD, gallstones that presents for weight management follow-up. Reviewed [facility] holistic and medical approach to weight loss with emphasis on lifestyle modification. 07/31/2024: Weight: 165, BMI: 29.2. Weight is down 1 pound. SECA reviewed, reveals fat loss with improvement in muscle mass. Overall improved body composition. She is encouraged to continue making health-conscious diet choices - reviewed importance of adequate nutrition with goal of prioritizing nutrient rich/protein dense foods. She is encouraged to continue hydrating adequately and exercising regularly. Reviewed alternative medications such as GLP-1 agonist, patient not comfortable pursuing the alternative due to side effect profile. #ADHD: Patient with history of ADHD. Previously treated with stimulants as a child. Positive response to 6 month course of phentermine. During encounters patient displays characteristics of both inattentive and hyperactive - type ADHD (predominately hyperactive type). Recommending patient establish care with mental health provider with goal of reinitiating treatment with daily stimulant. Recommended [facility]. 06/05/24: Weight: 166, BMI: 29.4. 05/03/2024: Weight: 167, BMI: 29.6. 04/02/2024: Weight: 169, BMI: 29.9. 02/23/24: Weight: 172.2, BMI: 30.5. 01/18/2024: Weight: 174, BMI: 30.8. All questions answered to the patient's satisfaction. Patient demonstrates understanding of diagnosis and treatments discussed. Follow-up at next scheduled appointment, sooner should any questions/concerns arise. Case discussed with collaborating physician Dwain Herman who has reviewed the assessment/plan. Chart, medications, labs, and vital signs reviewed. Dictation completed with the use of [email or web address] voice recognition software, prone to medical misidentifications and grammatical errors. All errors are unintentional. Although the practitioner does try to identify and correct errors, some may be present. Please do not hesitate to contact the practitioner for clarification. Total time was 30 minutes spent with >50% on coordination of care and patient education. 06/05/2024 Nutritional counseling (ICD-10 - Z71.3) Sophie is a 38-year-old female with a PMH of ALH/LCIS of the left breast, hypothyroidism, PCOS, reactive hypoglycemia, hiatal hernia, GERD, gallstones that presents for weight management follow-up. Reviewed [facility] holistic and medical approach to weight loss with emphasis on lifestyle modification. 06/05/24: Weight: 166, BMI: 29.4. Patient's weight is down 1.7 pounds. SECA reviewed, reveals 2 pounds of fat loss with maintenance of muscle mass. Waist circumference down 1 inch. Patient is dedicated to lifestyle changes including maintaining a healthy diet, hydrating adequately, and exercising daily. Discussed importance of adequate nutrition with goal of continued weight loss/improving metabolic health. Given her underlying PCOS discussed option of alternative weight loss medication Zepbound/Wegovy. Patient may benefit from mechanism of action of GLP-1 agonist. Patient would like to continue phentermine 15 mg for now. She will research Zepbound, she is hesitant to try this medication as she does not want to be on it long-term and she appears it well exacerbate her underlying gallstones/indigesti on due to hiatal hernia. 05/03/2024: Weight: 167, BMI: 29.6. Patient annual 80 pounds. SECA reviewed, reveals fat loss with maintenance of muscle mass. Patient is encouraged to continue making health-conscious diet choices and prioritizing protein intake. Discussed possibility of exercising 3 to 4 days/week to allow for rest daily. Patient educated on the importance of decompression/stress management for healthy weight loss. Plan to increase dose of phentermine to 30 mg once daily. Will send as 15 mg 2 tablets once daily so that the patient may decrease dose if she experiences side effects. Plan to follow-up in 1 month. 04/02/2024: Weight: 169, BMI: 29.9. Patient down approximately 6 pounds since establishing care. SECA reviewed. Patient is encouraged to continue making health-conscious diet choices, practicing portion control, and prioritizing protein intake. Discussed possibility of increasing dose of phentermine, patient would like to stay at current dose. Refill for phentermine 15 mg once daily provided. 0.5 mg MICC injection administered. Discussed possibility of adding berberine supplement for additional benefit of improving insulin sensitivity (pt with history of PCOS)/holistic approach to weight loss. 02/23/24: Weight: 172.2, BMI: 30.5. Patient down 3.8 pounds per home scale. In office scale reflects 2 pounds of weight loss with 9-day use of phentermine. SECA reviewed, reveals 2 pounds of fat loss moderately increased muscle mass. Patient is encouraged to continue making health-conscious diet choices and practicing portion control. Given she is physically active consistently, she is encouraged to strive for at least 1200-calorie/day to ensure adequate calorie intake. Recommending continued water intake, goal 60-80 ounces/day. 0.5mg MICC injection administered again today at the patients request. As it has only been a short time with use of phentermine, plan to continue 15 mg once daily with plan to follow-up in 1 month for continued evaluation. 01/18/2024: Weight: 174, BMI: 30.8 Reviewed SECA/goals for implementing sustainable lifestyle changes. Patient is encouraged to increase physical activity, goal 8-10k steps/day. Also discussed the importance of strength training with proper safety/body mechanics for maintenance of muscle mass/bone health. Patient encouraged to drink 60-80oz water/day. Reviewed the importance of adequate nutrition in terms of calorie and protein intake. Goal of 80-100g protein/day. Reviewed risks, benefits, and side effects of weight management medications including holistic approaches to weight loss/supplements, phentermine, Topamax, Contrave, metformin, and GLP-1 agonist. Patient interested in phentermine. Wary of GLP-1 agonist given biliary colic/gallstones and acid reflux. Baseline EKG reveals normal sinus rhythm, no ST/T wave changes to suggest ischemia. Rx for phentermine 15 mg once daily sent to pharmacy. Reviewed proper use and side effects including but not limited to increased/irregular heart rate, increased blood pressure, headache, and increased anxiety. Given the patient has a history of extreme reactions/intoleranc es to typical doses of medication, half of the traditional MICC dose was administered at her request, furthermore she is encouraged to discontinue phentermine should any atypical symptoms begin. All questions answered to the patient's satisfaction. Patient demonstrates understanding of diagnosis and treatments discussed. Follow-up at next scheduled appointment, sooner should any questions/concerns arise. Case discussed with collaborating physician Dwain Herman who has reviewed the assessment/plan. Chart, medications, labs, and vital signs reviewed. Dictation completed with the use of [email or web address] voice recognition software, prone to medical misidentifications and grammatical errors. All errors are unintentional. Although the practitioner does try to identify and correct errors, some may be present. Please do not hesitate to contact the practitioner for clarification. Total time was 30 minutes spent with >50% on coordination of care and patient education. 11/14/2024 Breast atypical hyperplasia (ICD-10 - N60.99) #Weight Management 11/14/2024 Will resume the patient on phentermine Will update comprehensive labs including thyroid function Total time spent today was 30 minutes of which greater than 50% was spent on coordinating and counseling Patient has been found to be overweight with a BMI of (29). Patient has overweight class per BMI standards We are a board certified obesity and weight management practice Patient has trialed behavioral modification, dietary restrictions and exercise for a minimum of 6 months The most recent [place] [employer]ocrin[employer] and [place] [employer] guidelines recommend patients who have overweight BMI or obesity BMI, who also have metabolic syndrome, prediabetes, HLD, and other comorbidities or at risk of developing type 2 diabetes should aim for a weight loss goal of at least 10% of the baseline body weight Patient counseled regarding effects of GLP/GIP-1 agonists, and other FDA approved wgt loss meds with regards to a multifactorial approach of weight loss as mentioned above and not solely appetite suppression. Of note, some information is being carried forward from prior records for informational purposes only and is being cited so that efficiency, safety and quality of the patient's care is not compromised This note was prepared using voice recognition software and direct typing Please excuse inadvertent professor of genetics or typing errors, or uncorrected word substitutions Although every attempt has been made by the provider to proofread this document, occasional misspellings and typographical errors may still be present Due to the previous pandemic, and the use of personal protective equipment (PPE) This may decrease voice recognition accuracy Inadvertent professor of genetics errors may occur 07/31/2024 Blood pressure check (ICD-10 - Z01.30) Sophie is a 38-year-old female with a PMH of ALH/LCIS of the left breast, hypothyroidism, PCOS, reactive hypoglycemia, ADHD, hiatal hernia, GERD, gallstones that presents for weight management follow-up. Reviewed [facility] holistic and medical approach to weight loss with emphasis on lifestyle modification. 07/31/2024: Weight: 165, BMI: 29.2. Weight is down 1 pound. SECA reviewed, reveals fat loss with improvement in muscle mass. Overall improved body composition. She is encouraged to continue making health-conscious diet choices - reviewed importance of adequate nutrition with goal of prioritizing nutrient rich/protein dense foods. She is encouraged to continue hydrating adequately and exercising regularly. Reviewed alternative medications such as GLP-1 agonist, patient not comfortable pursuing the alternative due to side effect profile. #ADHD: Patient with history of ADHD. Previously treated with stimulants as a child. Positive response to 6 month course of phentermine. During encounters patient displays characteristics of both inattentive and hyperactive - type ADHD (predominately hyperactive type). Recommending patient establish care with mental health provider with goal of reinitiating treatment with daily stimulant. Recommended [facility]. 06/05/24: Weight: 166, BMI: 29.4. 05/03/2024: Weight: 167, BMI: 29.6. 04/02/2024: Weight: 169, BMI: 29.9. 02/23/24: Weight: 172.2, BMI: 30.5. 01/18/2024: Weight: 174, BMI: 30.8. All questions answered to the patient's satisfaction. Patient demonstrates understanding of diagnosis and treatments discussed. Follow-up at next scheduled appointment, sooner should any questions/concerns arise. Case discussed with collaborating physician Dwain Herman who has reviewed the assessment/plan. Chart, medications, labs, and vital signs reviewed. Dictation completed with the use of [email or web address] voice recognition software, prone to medical misidentifications and grammatical errors. All errors are unintentional. Although the practitioner does try to identify and correct errors, some may be present. Please do not hesitate to contact the practitioner for clarification. Total time was 30 minutes spent with >50% on coordination of care and patient education. 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 Reviewed [facility] holistic and medical approach to weight loss with emphasis on lifestyle modification. 02/23/24: Weight: 172.2, BMI: 30.5. Patient down 3.8 pounds per home scale. In office scale reflects 2 pounds of weight loss with 9-day use of phentermine. SECA reviewed, reveals 2 pounds of fat loss moderately increased muscle mass. Patient is encouraged to continue making health-conscious diet choices and practicing portion control. Given she is physically active consistently, she is encouraged to strive for at least 1200-calorie/day to ensure adequate calorie intake. Recommending continued water intake, goal 60-80 ounces/day. 0.5mg MICC injection administered again today at the patients request. As it has only been a short time with use of phentermine, plan to continue 15 mg once daily with plan to follow-up in 1 month for continued evaluation. 01/18/2024: Weight: 174, BMI: 30.8 Reviewed SECA/goals for implementing sustainable lifestyle changes. Patient is encouraged to increase physical activity, goal 8-10k steps/day. Also discussed the importance of strength training with proper safety/body mechanics for maintenance of muscle mass/bone health. Patient encouraged to drink 60-80oz water/day. Reviewed the importance of adequate nutrition in terms of calorie and protein intake. Goal of 80-100g protein/day. Reviewed risks, benefits, and side effects of weight management medications including holistic approaches to weight loss/supplements, phentermine, Topamax, Contrave, metformin, and GLP-1 agonist. Patient interested in phentermine. Wary of GLP-1 agonist given biliary colic/gallstones and acid reflux. Baseline EKG reveals normal sinus rhythm, no ST/T wave changes to suggest ischemia. Rx for phentermine 15 mg once daily sent to pharmacy. Reviewed proper use and side effects including but not limited to increased/irregular heart rate, increased blood pressure, headache, and increased anxiety. Given the patient has a history of extreme reactions/intoleranc es to typical doses of medication, half of the traditional MICC dose was administered at her request, furthermore she is encouraged to discontinue phentermine should any atypical symptoms begin. All questions answered to the patient's satisfaction. Patient demonstrates understanding of diagnosis and treatments discussed. Follow-up at next scheduled appointment, sooner should any questions/concerns arise. Case discussed with collaborating physician Randy Herman who has reviewed the assessment/plan. Chart, medications, labs, and vital signs reviewed. Dictation completed with the use of [email or web address] voice recognition software, prone to medical misidentifications and grammatical errors. All errors are unintentional. Although the practitioner does try to identify and correct errors, some may be present. Please do not hesitate to contact the practitioner for clarification. Total time was 30 minutes spent with >50% on coordination of care and patient education. 02/23/2024 Breast atypical lobular hyperplasia (ICD-10 - N60.99) Sophie is a 38-year-old female with a PMH of ALH/LCIS of the left breast, hypothyroidism, reactive hypoglycemia, hiatal hernia, GERD, gallstones that presents for weight management follow-up. Reviewed [facility] holistic and medical approach to weight loss with emphasis on lifestyle modification. 02/23/24: Weight: 172.2, BMI: 30.5. Patient down 3.8 pounds per home scale. In office scale reflects 2 pounds of weight loss with 9-day use of phentermine. SECA reviewed, reveals 2 pounds of fat loss moderately increased muscle mass. Patient is encouraged to continue making health-conscious diet choices and practicing portion control. Given she is physically active consistently, she is encouraged to strive for at least 1200-calorie/day to ensure adequate calorie intake. Recommending continued water intake, goal 60-80 ounces/day. 0.5mg MICC injection administered again today at the patients request. As it has only been a short time with use of phentermine, plan to continue 15 mg once daily with plan to follow-up in 1 month for continued evaluation. 01/18/2024: Weight: 174, BMI: 30.8 Reviewed SECA/goals for implementing sustainable lifestyle changes. Patient is encouraged to increase physical activity, goal 8-10k steps/day. Also discussed the importance of strength training with proper safety/body mechanics for maintenance of muscle mass/bone health. Patient encouraged to drink 60-80oz water/day. Reviewed the importance of adequate nutrition in terms of calorie and protein intake. Goal of 80-100g protein/day. Reviewed risks, benefits, and side effects of weight management medications including holistic approaches to weight loss/supplements, phentermine, Topamax, Contrave, metformin, and GLP-1 agonist. Patient interested in phentermine. Wary of GLP-1 agonist given biliary colic/gallstones and acid reflux. Baseline EKG reveals normal sinus rhythm, no ST/T wave changes to suggest ischemia. Rx for phentermine 15 mg once daily sent to pharmacy. Reviewed proper use and side effects including but not limited to increased/irregular heart rate, increased blood pressure, headache, and increased anxiety. Given the patient has a history of extreme reactions/intoleranc es to typical doses of medication, half of the traditional MICC dose was administered at her request, furthermore she is encouraged to discontinue phentermine should any atypical symptoms begin. All questions answered to the patient's satisfaction. Patient demonstrates understanding of diagnosis and treatments discussed. Follow-up at next scheduled appointment, sooner should any questions/concerns arise. Case discussed with collaborating physician Randy Herman who has reviewed the assessment/plan. Chart, medications, labs, and vital signs reviewed. Dictation completed with the use of [email or web address] voice recognition software, prone to medical misidentifications and grammatical errors. All errors are unintentional. Although the practitioner does try to identify and correct errors, some may be present. Please do not hesitate to contact the practitioner for clarification. Total time was 30 minutes spent with >50% on coordination of care and patient education. 02/23/2024 Reactive hypoglycemia (ICD-10 - E16.1) Sophie is a 38-year-old female with a PMH of ALH/LCIS of the left breast, hypothyroidism, reactive hypoglycemia, hiatal hernia, GERD, gallstones that presents for weight management follow-up. Reviewed [facility] holistic and medical approach to weight loss with emphasis on lifestyle modification. 02/23/24: Weight: 172.2, BMI: 30.5. Patient down 3.8 pounds per home scale. In office scale reflects 2 pounds of weight loss with 9-day use of phentermine. SECA reviewed, reveals 2 pounds of fat loss moderately increased muscle mass. Patient is encouraged to continue making health-conscious diet choices and practicing portion control. Given she is physically active consistently, she is encouraged to strive for at least 1200-calorie/day to ensure adequate calorie intake. Recommending continued water intake, goal 60-80 ounces/day. 0.5mg MICC injection administered again today at the patients request. As it has only been a short time with use of phentermine, plan to continue 15 mg once daily with plan to follow-up in 1 month for continued evaluation. 01/18/2024: Weight: 174, BMI: 30.8 Reviewed SECA/goals for implementing sustainable lifestyle changes. Patient is encouraged to increase physical activity, goal 8-10k steps/day. Also discussed the importance of strength training with proper safety/body mechanics for maintenance of muscle mass/bone health. Patient encouraged to drink 60-80oz water/day. Reviewed the importance of adequate nutrition in terms of calorie and protein intake. Goal of 80-100g protein/day. Reviewed risks, benefits, and side effects of weight management medications including holistic approaches to weight loss/supplements, phentermine, Topamax, Contrave, metformin, and GLP-1 agonist. Patient interested in phentermine. Wary of GLP-1 agonist given biliary colic/gallstones and acid reflux. Baseline EKG reveals normal sinus rhythm, no ST/T wave changes to suggest ischemia. Rx for phentermine 15 mg once daily sent to pharmacy. Reviewed proper use and side effects including but not limited to increased/irregular heart rate, increased blood pressure, headache, and increased anxiety. Given the patient has a history of extreme reactions/intoleranc es to typical doses of medication, half of the traditional MICC dose was administered at her request, furthermore she is encouraged to discontinue phentermine should any atypical symptoms begin. All questions answered to the patient's satisfaction. Patient demonstrates understanding of diagnosis and treatments discussed. Follow-up at next scheduled appointment, sooner should any questions/concerns arise. Case discussed with collaborating physician Randy Herman who has reviewed the assessment/plan. Chart, medications, labs, and vital signs reviewed. Dictation completed with the use of [email or web address] voice recognition software, prone to medical misidentifications and grammatical errors. All errors are unintentional. Although the practitioner does try to identify and correct errors, some may be present. Please do not hesitate to contact the practitioner for clarification. Total time was 30 minutes spent with >50% on coordination of care and patient education. 02/23/2024 Hiatal hernia (ICD-10 - K44.9) Sophie is a 38-year-old female with a PMH of ALH/LCIS of the left breast, hypothyroidism, reactive hypoglycemia, hiatal hernia, GERD, gallstones that presents for weight management follow-up. Reviewed [facility] holistic and medical approach to weight loss with emphasis on lifestyle modification. 02/23/24: Weight: 172.2, BMI: 30.5. Patient down 3.8 pounds per home scale. In office scale reflects 2 pounds of weight loss with 9-day use of phentermine. SECA reviewed, reveals 2 pounds of fat loss moderately increased muscle mass. Patient is encouraged to continue making health-conscious diet choices and practicing portion control. Given she is physically active consistently, she is encouraged to strive for at least 1200-calorie/day to ensure adequate calorie intake. Recommending continued water intake, goal 60-80 ounces/day. 0.5mg MICC injection administered again today at the patients request. As it has only been a short time with use of phentermine, plan to continue 15 mg once daily with plan to follow-up in 1 month for continued evaluation. 01/18/2024: Weight: 174, BMI: 30.8 Reviewed SECA/goals for implementing sustainable lifestyle changes. Patient is encouraged to increase physical activity, goal 8-10k steps/day. Also discussed the importance of strength training with proper safety/body mechanics for maintenance of muscle mass/bone health. Patient encouraged to drink 60-80oz water/day. Reviewed the importance of adequate nutrition in terms of calorie and protein intake. Goal of 80-100g protein/day. Reviewed risks, benefits, and side effects of weight management medications including holistic approaches to weight loss/supplements, phentermine, Topamax, Contrave, metformin, and GLP-1 agonist. Patient interested in phentermine. Wary of GLP-1 agonist given biliary colic/gallstones and acid reflux. Baseline EKG reveals normal sinus rhythm, no ST/T wave changes to suggest ischemia. Rx for phentermine 15 mg once daily sent to pharmacy. Reviewed proper use and side effects including but not limited to increased/irregular heart rate, increased blood pressure, headache, and increased anxiety. Given the patient has a history of extreme reactions/intoleranc es to typical doses of medication, half of the traditional MICC dose was administered at her request, furthermore she is encouraged to discontinue phentermine should any atypical symptoms begin. All questions answered to the patient's satisfaction. Patient demonstrates understanding of diagnosis and treatments discussed. Follow-up at next scheduled appointment, sooner should any questions/concerns arise. Case discussed with collaborating physician Randy Herman who has reviewed the assessment/plan. Chart, medications, labs, and vital signs reviewed. Dictation completed with the use of [email or web address] voice recognition software, prone to medical misidentifications and grammatical errors. All errors are unintentional. Although the practitioner does try to identify and correct errors, some may be present. Please do not hesitate to contact the practitioner for clarification. Total time was 30 minutes spent with >50% on coordination of care and patient education. 02/23/2024 Gastroesophageal reflux disease, unspecified whether esophagitis present (ICD-10 - K21.9) Sophie is a 38-year-old female with a PMH of ALH/LCIS of the left breast, hypothyroidism, reactive hypoglycemia, hiatal hernia, GERD, gallstones that presents for weight management follow-up. Reviewed [facility] holistic and medical approach to weight loss with emphasis on lifestyle modification. 02/23/24: Weight: 172.2, BMI: 30.5. Patient down 3.8 pounds per home scale. In office scale reflects 2 pounds of weight loss with 9-day use of phentermine. SECA reviewed, reveals 2 pounds of fat loss moderately increased muscle mass. Patient is encouraged to continue making health-conscious diet choices and practicing portion control. Given she is physically active consistently, she is encouraged to strive for at least 1200-calorie/day to ensure adequate calorie intake. Recommending continued water intake, goal 60-80 ounces/day. 0.5mg MICC injection administered again today at the patients request. As it has only been a short time with use of phentermine, plan to continue 15 mg once daily with plan to follow-up in 1 month for continued evaluation. 01/18/2024: Weight: 174, BMI: 30.8 Reviewed SECA/goals for implementing sustainable lifestyle changes. Patient is encouraged to increase physical activity, goal 8-10k steps/day. Also discussed the importance of strength training with proper safety/body mechanics for maintenance of muscle mass/bone health. Patient encouraged to drink 60-80oz water/day. Reviewed the importance of adequate nutrition in terms of calorie and protein intake. Goal of 80-100g protein/day. Reviewed risks, benefits, and side effects of weight management medications including holistic approaches to weight loss/supplements, phentermine, Topamax, Contrave, metformin, and GLP-1 agonist. Patient interested in phentermine. Wary of GLP-1 agonist given biliary colic/gallstones and acid reflux. Baseline EKG reveals normal sinus rhythm, no ST/T wave changes to suggest ischemia. Rx for phentermine 15 mg once daily sent to pharmacy. Reviewed proper use and side effects including but not limited to increased/irregular heart rate, increased blood pressure, headache, and increased anxiety. Given the patient has a history of extreme reactions/intoleranc es to typical doses of medication, half of the traditional MICC dose was administered at her request, furthermore she is encouraged to discontinue phentermine should any atypical symptoms begin. All questions answered to the patient's satisfaction. Patient demonstrates understanding of diagnosis and treatments discussed. Follow-up at next scheduled appointment, sooner should any questions/concerns arise. Case discussed with collaborating physician Randy Herman who has reviewed the assessment/plan. Chart, medications, labs, and vital signs reviewed. Dictation completed with the use of [email or web address] voice recognition software, prone to medical misidentifications and grammatical errors. All errors are unintentional. Although the practitioner does try to identify and correct errors, some may be present. Please do not hesitate to contact the practitioner for clarification. Total time was 30 minutes spent with >50% on coordination of care and patient education. 02/23/2024 Gallstones (ICD-10 - K80.20) Sophie is a 38-year-old female with a PMH of ALH/LCIS of the left breast, hypothyroidism, reactive hypoglycemia, hiatal hernia, GERD, gallstones that presents for weight management follow-up. Reviewed [facility] holistic and medical approach to weight loss with emphasis on lifestyle modification. 02/23/24: Weight: 172.2, BMI: 30.5. Patient down 3.8 pounds per home scale. In office scale reflects 2 pounds of weight loss with 9-day use of phentermine. SECA reviewed, reveals 2 pounds of fat loss moderately increased muscle mass. Patient is encouraged to continue making health-conscious diet choices and practicing portion control. Given she is physically active consistently, she is encouraged to strive for at least 1200-calorie/day to ensure adequate calorie intake. Recommending continued water intake, goal 60-80 ounces/day. 0.5mg MICC injection administered again today at the patients request. As it has only been a short time with use of phentermine, plan to continue 15 mg once daily with plan to follow-up in 1 month for continued evaluation. 01/18/2024: Weight: 174, BMI: 30.8 Reviewed SECA/goals for implementing sustainable lifestyle changes. Patient is encouraged to increase physical activity, goal 8-10k steps/day. Also discussed the importance of strength training with proper safety/body mechanics for maintenance of muscle mass/bone health. Patient encouraged to drink 60-80oz water/day. Reviewed the importance of adequate nutrition in terms of calorie and protein intake. Goal of 80-100g protein/day. Reviewed risks, benefits, and side effects of weight management medications including holistic approaches to weight loss/supplements, phentermine, Topamax, Contrave, metformin, and GLP-1 agonist. Patient interested in phentermine. Wary of GLP-1 agonist given biliary colic/gallstones and acid reflux. Baseline EKG reveals normal sinus rhythm, no ST/T wave changes to suggest ischemia. Rx for phentermine 15 mg once daily sent to pharmacy. Reviewed proper use and side effects including but not limited to increased/irregular heart rate, increased blood pressure, headache, and increased anxiety. Given the patient has a history of extreme reactions/intoleranc es to typical doses of medication, half of the traditional MICC dose was administered at her request, furthermore she is encouraged to discontinue phentermine should any atypical symptoms begin. All questions answered to the patient's satisfaction. Patient demonstrates understanding of diagnosis and treatments discussed. Follow-up at next scheduled appointment, sooner should any questions/concerns arise. Case discussed with collaborating physician Randy Herman who has reviewed the assessment/plan. Chart, medications, labs, and vital signs reviewed. Dictation completed with the use of [email or web address] voice recognition software, prone to medical misidentifications and grammatical errors. All errors are unintentional. Although the practitioner does try to identify and correct errors, some may be present. Please do not hesitate to contact the practitioner for clarification. Total time was 30 minutes spent with >50% on coordination of care and patient education. 02/23/2024 Nutritional counseling (ICD-10 - Z71.3) Sophie is a 38-year-old female with a PMH of ALH/LCIS of the left breast, hypothyroidism, reactive hypoglycemia, hiatal hernia, GERD, gallstones that presents for weight management follow-up. Reviewed [facility] holistic and medical approach to weight loss with emphasis on lifestyle modification. 02/23/24: Weight: 172.2, BMI: 30.5. Patient down 3.8 pounds per home scale. In office scale reflects 2 pounds of weight loss with 9-day use of phentermine. SECA reviewed, reveals 2 pounds of fat loss moderately increased muscle mass. Patient is encouraged to continue making health-conscious diet choices and practicing portion control. Given she is physically active consistently, she is encouraged to strive for at least 1200-calorie/day to ensure adequate calorie intake. Recommending continued water intake, goal 60-80 ounces/day. 0.5mg MICC injection administered again today at the patients request. As it has only been a short time with use of phentermine, plan to continue 15 mg once daily with plan to follow-up in 1 month for continued evaluation. 01/18/2024: Weight: 174, BMI: 30.8 Reviewed SECA/goals for implementing sustainable lifestyle changes. Patient is encouraged to increase physical activity, goal 8-10k steps/day. Also discussed the importance of strength training with proper safety/body mechanics for maintenance of muscle mass/bone health. Patient encouraged to drink 60-80oz water/day. Reviewed the importance of adequate nutrition in terms of calorie and protein intake. Goal of 80-100g protein/day. Reviewed risks, benefits, and side effects of weight management medications including holistic approaches to weight loss/supplements, phentermine, Topamax, Contrave, metformin, and GLP-1 agonist. Patient interested in phentermine. Wary of GLP-1 agonist given biliary colic/gallstones and acid reflux. Baseline EKG reveals normal sinus rhythm, no ST/T wave changes to suggest ischemia. Rx for phentermine 15 mg once daily sent to pharmacy. Reviewed proper use and side effects including but not limited to increased/irregular heart rate, increased blood pressure, headache, and increased anxiety. Given the patient has a history of extreme reactions/intoleranc es to typical doses of medication, half of the traditional MICC dose was administered at her request, furthermore she is encouraged to discontinue phentermine should any atypical symptoms begin. All questions answered to the patient's satisfaction. Patient demonstrates understanding of diagnosis and treatments discussed. Follow-up at next scheduled appointment, sooner should any questions/concerns arise. Case discussed with collaborating physician Randy Herman who has reviewed the assessment/plan. Chart, medications, labs, and vital signs reviewed. Dictation completed with the use of [email or web address] voice recognition software, prone to medical misidentifications and grammatical errors. All errors are unintentional. Although the practitioner does try to identify and correct errors, some may be present. Please do not hesitate to contact the practitioner for clarification. Total time was 30 minutes spent with >50% on coordination of care and patient education. Plan Of Treatment Pending Test Test Name Order Date EKG 01/18/2024 LIPID PANEL, STANDARD 11/14/2024 COMPREHENSIVE METABOLIC PANEL 11/14/2024 CBC (INCLUDES DIFF/PLT) 11/14/2024 URINALYSIS, COMPLETE 11/14/2024 HEMOGLOBIN A1c 11/14/2024 T4 (THYROXINE), TOTAL 11/14/2024 TSH 11/14/2024 VITAMIN D,25-OH,TOTAL,IA 11/14/2024 Next Appt Details Provider Name:MICHELLE HOUSTONWendy, 02/23/2025 12:30:00 PM, [address], [place], [address], Insurance Providers Payer Name Payer Address Payer Phone Subscriber Number Group Number Insured Name Patient Relationship to Insured Coverage Start Date Coverage End Date [facility] [address] [place] [address] [phone] [id number] JAA Lamoureu x, Sophie Self - patient is the insured Medications Administered Medication Instructions Date of Administration Dosage Notes MICC B12 INJECTION 01/18/2024 .5 mL MICC B12 INJECTION 02/23/2024 0.5 mL MICC B12 INJECTION 04/02/2024 .5 mg MICC B12 INJECTION 07/31/2024 0.5 mL MICC B12 INJECTION 11/14/2024 0.5 mL Medical (General) History Medical History History ICD Code Acquired hypothyroidism E03.9 Anxiety, generalized F41.1 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 99 Reactive hypoglycemia E16.1 Hiatal hernia K44.9 Gastroesophageal reflux disease, unspeci fied whether esophagitis present K21.9 Gallstones K80.20 Surgical History Surgery Date(Month/Year) fallopian tube removal 02/2021 removal of left breast mass 2022 removal of right breast duct 2023 caesarean section (2009, 2011, 2015)
--- OUTSIDE RECORDS SUMMARY | 2025-01-23 22:22 | XMS_ITS | Encounter Summary ---
Author Organization [facility] Address [address] [place] [address] Phone Care Team Providers Care Repacker Name Role Phone Suzanne Vyas OPERATIONS ARCHITECT Unavailable [phone] Conchita Tracey MD Unavailable [phone] Ilda Boyd OPERATIONS ARCHITECT Unavailable Hillary Mcfarlane OPERATIONS ARCHITECT Unavailable [phone] Hillary Martines PURCHASING ADMINISTRATOR Unavailable [phone] Henna Becerril MD Unavailable Whitney Bear MD Unavailable [phone] Janett Gonzales DO Unavailable Master Acosta MD Unavailable [phone] Juan De La Vega MD Unavailable Frances Harris RD Unavailable [email or web address] Christine Castillo MD Unavailable Brandan White MD Unavailable [phone] Paulina Chatman MD Unavailable Whitney Bear MD Primary Care Provider [phone] Tanja Davis DO Primary Care Provider [phone] Whitney Bear MD Unavailable Whitney Bear MD Unavailable Unknown, Unknown Primary Care Provider Tanja Moore DO Unavailable [phone] Encounter Details Date Type Department Care Team (Late Contact Info) Description 01/10/2018 Procedure Pass [facility], [facility] - [address] [address] Social History Tobacco Use Types Packs/Day Years [...] 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 Not on file Not on file documented as of this encounter Plan of Treatment Upcoming Encounters Date Type Department Care Team (Late Contact Info) Description 05/06/2025 3:00 PM EST Office Visit [facility] Endocrinology [address] [phone] Юлия Hardin MD [address] [place] [phone] documented as of this encounter Visit Diagnoses Not on filedocumented in this encounter Care Teams Repacker Relationship Specialty Start Date End Date Whitney Bear MD [address] [address] PCP - General 01/10/17 12/01/21 Tanja Davis DO [address] [place] [address] PCP - General Family Medicine 12/02/21 01/08/24 Unknown, Unknown, PCP - General 01/09/24 Suzanne Vyas NP [address] [place] [address] [email or web address] Historical LMR Provider 12/25/16 03/14/21 Conchita Tracey MD [address] [phone] [email or web address] Historical LMR Provider 12/25/16 03/14/21 Ilda Boyd NP [address] [place] [address] [email or web address] Historical LMR Provider 12/25/16 Hillary Mcfarlane NP [address] [place] [address] Historical LMR Provider 12/25/16 2 Hillary Martines FNP [address] [place] [address] [email or web address] Historical LMR Provider 12/25/16 03/14/21 Henna Becerril MD 15 [facility], 2nd [place] [address] Historical LMR Provider 12/25/16 Whitney Bear MD [address] [place] [address] Historical LMR Provider 12/25/16 Janett Gonzales DO [address] [place] [address] Historical LMR Provider 12/25/16 2 Master Acosta MD 22 [facility] [address] [place] [address] [email or web address] Historical LMR Provider 12/25/16 03/14/21 Juan De La Vega MD [address] [phone] Historical LMR Provider 12/25/16 2 Frances Harris, RDCS Historical LMR Provider 12/25/16 03/14/21 Christine Castillo MD [address] [place] [address] Historical LMR Provider 12/25/16 2 Brandan White MD [address] [place] [address] Historical LMR Provider 12/25/16 2 Paulina Chatman MD [address] [address] [email or web address] Historical LMR Provider 12/25/16 03/14/21 Whitney Bear MD [address] [address] [email or web address] Insurance Assigned Provider 03/13/22 07/10/22 Whitney Bear MD [address] [place] [address], [address] [place] [phone] [email or web address] Insurance Assigned Provider 06/11/23 07/16/23 Tanja Davis DO [address] [place] [address], [address] [place] [phone] [email or web address] Insurance Assigned Provider 04/14/24 05/12/24 documented as of this encounter Additional Source Comments The information contained in this document represents components of the legal health record. It is not the complete legal health record.[facility]
== END 2025-01-23 12:22 | disposition home or self-care (01) ==
PROVIDERS: PCP Family Medicine; Visit Provider Physician Assistant Medical
DX: S61.451A Open bite of right hand, initial encounter (principal); W54.0XXA Bitten by dog, initial encounter